=== PATIENT | female | born 1970 | race Caucasian/White ===

== ENCOUNTER 2017-06-23 17:27 | Emergency (ER) | payer BC ==
[2017-06-23] MEDS ORDERED: Ketorolac 60 MG/2 ML SDV IM ONE (17:50)
[2017-06-23] MEDS ORDERED: Enoxaparin 100 MG/1 ML Syringe SUBCUT ONE (19:28)
[2017-06-23] MEDS ORDERED: Warfarin 5 MG Tab PO SCH (19:30)
--- NOTE | 2017-06-23 19:52 | EDM.PDOC ---
ED HPI GENERAL MEDICAL PROBLEM - General Chief Complaint: Lower Extremity Injury/Pain Stated Complaint: LEG PAIN Time Seen by Provider: 06/23/17 17:41 Source of Information: Reports: Patient History Limitations: Reports: No Limitations - History of Present Illness INITIAL COMMENTS - FREE TEXT/NARRATIVE: HISTORY AND PHYSICAL: [] 47-year-old female presenting with right posterior knee pain History of Present Illness: []Pain occurred suddenly today and worsened if she drove here to ER Review of Systems: As per history of present illness and below otherwise all systems reviewed and negative. Past medical history: As per history of present illness and as reviewed below otherwise noncontributory. Surgical history: As per history of present illness and as reviewed below otherwise noncontributory. Social history: No reported history of drug or alcohol abuse. Family history: As per history of present illness and as reviewed below otherwise noncontributory. Physical exam: Alert and oriented female. answering questions appropriately HEENT: Atraumatic, normocehpalic, pupils reactive, negative for conjunctival pallor or scleral icterus, mucous membranes moist, throat clear, neck supple, nontender, trachea midline. Lungs: Clear to auscultation, breath sounds equal bilaterally, chest non tender. Heart: S1S2, regular, negative for clicks, rubs, or JVD. Abdomen: Soft, nondistended, nontender. Negative for masses or hepatossplenmegaly. Negative for costovertebral tenderness. Pelvis: Stable nontender. Genitourinary: Deferred. Rectal: Deferred Extremities: Atraumatic, negative for cords or calf pain. Pain is noted to the popliteal area. No pulses palpable Neurovascular unremarkable. Neuro: Awake, alert, oriented. Cranial nerves II through XII unremarkable. Cerebellum unremarkable. Motor and sensory unremarkable throughout. Exam nonfocal. Chest chest case with Dr. Garcia who is agreeable that she should have Lovenox and the Coumadin. He will see her in 2 days at the clinic on Wednesday06/25/2017. His instructed for the patient to call his nurse Nancy and talk to her about being worked into his schedule. Discussed case with Dr. Rincon who is in agreement that Lovenox (started on Coumadin and have her follow up with her primary care provider Discussed case with patient and her family who verbalized understanding of her instructions and oriented agreement with the plan of action Diagnostics: [Venous Doppler] Therapeutics: [Lovenox IM] Coumadin by mouth Impression: [DVT right popliteal] Plan: [Discharged to home No weightbearing to right leg Pain medication per written prescription hydrocodone/APAP 5/325 one up to 3 times daily as needed for pain number of 6 no refill ] Definitive disposition and diagnosis as appropriate pending reevaluation and review of above. Onset: Today, Sudden Duration: Hour(s):, Getting Worse Location: Reports: Lower Extremity, Right back of the right knee and right leg Pain Score (Numeric/FACES): 8 - Related Data Allergies Allergy/AdvReac Type Severity Reaction Status Date / Time chokecherries Allergy Rash Uncoded 06/23/17 17:38 Home Meds: Home Meds Famotidine 20 mg PO BID 09/07/16 [History] levETIRAcetam [Levetiracetam] 500 mg PO BID 09/07/16 [History] Enoxaparin [Lovenox] 95 mg SUBCUT Q12HR #10 syringe 06/23/17 [Rx] Multivitamin [Multivitamins] 1 cap PO DAILY 06/23/17 [History] Phenytoin Sodium Extended [Dilantin] 3 cap PO BID 06/23/17 [History] levETIRAcetam [Levetiracetam] 1 tab PO BID 06/23/17 [History] Past Medical History Cardiovascular History: Reports: None Neurological History: Reports: Seizure Psychiatric History: Reports: None - Infectious Disease History Infectious Disease History: Reports: Chicken Pox - Past Surgical History HEENT Surgical History: Reports: Tonsillectomy GI Surgical History: Reports: Cholecystectomy Musculoskeletal Surgical History: Reports: Other (See Below) Other Musculoskeletal Surgeries/Procedures:: bone spur on the right heel surgery Social & Family History - Family History Family Medical History: Noncontributory - Tobacco Use Smoking Status *Q: Current Every Day Smoker Years of Tobacco use: 30 Packs/Tins Daily: 0.7 Used Tobacco, but Quit: No Second Hand Smoke Exposure: Yes - Alcohol Use Days Per Week of Alcohol Use: 0 - Recreational Drug Use Recreational Drug Use: No Review of Systems - Review of Systems Review Of Systems: ROS reveals no pertinent complaints other than HPI. ED EXAM, GENERAL - Physical Exam Exam: See Below (see dictation) Course - Vital Signs Last Recorded V/S: Last Vital Signs Temp 36.7 C 06/23/17 20:17 Pulse 87 06/23/17 20:17 Resp 18 06/23/17 20:17 BP 110/71 06/23/17 20:17 Pulse Ox 95 06/23/17 20:17 - Orders/Labs/Meds Orders: Active Orders 24 hr Category Date Time Status Venous Doppler Lwr Ext Rt [US] Stat Exams 06/23/17 17:50 Taken Warfarin [Coumadin] Med 06/23/17 19:30 Active 5 mg PO DAILY Medication Orders Warfarin Sodium (Coumadin) 5 mg PO DAILY CYNTHIA Last Admin: 06/23/17 19:59 Dose: 5 mg Labs: Laboratory Tests 06/23/17 06/23/17 06/23/17 Range/Units 19:25 19:25 19:25 WBC 9.10 (4.0-11.0) K/uL RBC 4.55 (4.30-5.90) M/uL Hgb 14.7 (12.0-16.0) g/dL Hct 42.4 (36.0-46.0) % MCV 93.2 (80.0-98.0) fL MCH 32.3 H (27.0-32.0) pg MCHC 34.7 (31.0-37.0) g/dL RDW Std Deviation 43.4 (28.0-62.0) fl RDW Coeff of Jennifer 13 (11.0-15.0) % Plt Count 204 (150-400) K/uL MPV 8.80 (7.40-12.00) fL Neut % (Auto) 59.6 (48.0-80.0) % Lymph % (Auto) 28.5 (16.0-40.0) % Bryan % (Auto) 9.2 (0.0-15.0) % Eos % (Auto) 2.2 (0.0-7.0) % Baso % (Auto) 0.5 (0.0-1.5) % Neut # (Auto) 5.4 (1.4-5.7) K/uL Lymph # (Auto) 2.6 H (0.6-2.4) K/uL Bryan # (Auto) 0.8 (0.0-0.8) K/uL Eos # (Auto) 0.2 (0.0-0.7) K/uL Baso # (Auto) 0.1 (0.0-0.1) K/uL INR 1.00 (0.86-1.11) Sodium 138 (136-146) mmol/L Potassium 3.8 (3.5-5.1) mmol/L Chloride 103 (98-110) mmol/L Carbon Dioxide 24 (21-31) mmol/L BUN 7 (6.0-23.0) mg/dL Creatinine 0.7 (0.6-1.5) mg/dL Est Cr Clr Drug Dosing 94.01 mL/min Estimated GFR (MDRD) > 60.0 ml/min Glucose 75 (60-110) mg/dL Calcium 8.6 L (8.8-10.8) mg/dL Total Bilirubin 0.4 (0.1-1.5) mg/dL AST 26 (5-40) IU/L ALT 39 (8-54) IU/L Alkaline Phosphatase 127 (40-150) Total Protein 6.8 (6.0-8.0) g/dL Albumin 3.4 L (3.5-5.0) g/dL Globulin 3.4 (2.0-3.5) g/dL Albumin/Globulin Ratio 1.0 L (1.3-2.8) Meds: Medications Generic Name Dose Route Start Last Admin Trade Name Freq PRN Reason Stop Dose Admin Warfarin Sodium 5 mg 06/23/17 19:30 06/23/17 19:59 Coumadin PO 5 mg DAILY CYNTHIA Administration Discontinued Medications Generic Name Dose Route Start Last Admin Trade Name Freq PRN Reason Stop Dose Admin Enoxaparin Sodium 95 mg 06/23/17 19:28 06/23/17 19:58 Lovenox SUBCUT 06/23/17 19:29 95 mg ONETIME ONE Administration Ketorolac Tromethamine 60 mg 06/23/17 17:50 06/23/17 18:01 Toradol IM 06/23/17 17:51 60 mg ONETIME ONE Administration Departure - Departure Time of Disposition: 20:21 Disposition: Home, Self-Care 01 Condition: Good Clinical Impression: DVT (deep venous thrombosis) Qualifiers: DVT location: lower extremity Affected thrombotic vein of extremity: popliteal Chronicity: acute Laterality: right Qualified Code(s): I82.431 - Acute embolism and thrombosis of right popliteal vein - Discharge Information Prescriptions: Enoxaparin [Lovenox] 95 mg SUBCUT Q12HR #10 syringe Instructions: How and Where to Give Subcutaneous Injections Using a Prefilled Syringe, Deep Vein Thrombosis Referrals: PCP,None [Primary Care Provider] - Forms: ED Department Discharge Additional Instructions: The following information is given to patients seen in the emergency department who are being discharged to home. This information is to outline your options for follow-up care. We provide all patients seen in our emergency department with a follow-up referral. The need for follow-up, as well as the timing and circumstances, are variable depending upon the specifics of your emergency department visit. If you don't have a primary care physician on staff, we will provide you with a referral. We always advise you to contact your personal physician following an emergency department visit to inform them of the circumstance of the visit and for follow-up with them and/or the need for any referrals to a consulting specialist. The emergency department will also refer you to a specialist when appropriate. This referral assures that you have the opportunity for followup care with a specialist. All of these measure are taken in an effort to provide you with optimal care, which includes your followup. Under all circumstances we always encourage you to contact your private physician who remains a resource for coordinating your care. When calling for followup care, please make the office aware that this follow-up is from your recent emergency room visit. If for any reason you are refused follow-up, please contact the [facility] emergency department at and asked to speak to the emergency department charge nurse. Dr. Mike Garcia is aware of your diagnosis He has instructed for you to call his nurse Nancy tomorrow and make arrangements to be worked into his clinic on Wednesday06/25/2017 Any worsening of symptoms difficulty breathing please return immediately for reevaluation to the emergency department - My Orders Last 24 Hours: My Active Orders 06/23/17 17:50 Venous Doppler Lwr Ext Rt [US] Stat 06/23/17 19:30 Warfarin [Coumadin] 5 mg PO DAILY - Assessment/Plan Last 24 Hours: My Active Orders 06/23/17 17:50 Venous Doppler Lwr Ext Rt [US] Stat 06/23/17 19:30 Warfarin [Coumadin] 5 mg PO DAILY
[2017-06-23 20:00] LABS: CHLORIDE,CL 103 mmol/L (98-110); SODIUM,NA 138 mmol/L (136-146)
[2017-06-23 20:18] VITALS: BP 110/71
--- NOTE | 2017-06-24 13:33 | US ---
EXAM DATE: 06/23/17 PATIENT'S AGE: 47 Patient: SCOTT ARCHER Facility: [place], [place] Site . Site : [id number] Study: US Extremity Venous [id number] 7:05:44 PM Ordering Physician: Doctor Brownlee Final Report: INDICATION: Pain TECHNIQUE: Ultrasound venous duplex lower right extremity. Compression venous exam was performed using garcia-scale, color Doppler, and spectral Doppler imaging. COMPARISON: None available FINDINGS: There is a thrombus in the right popliteal vein extending to the distal aspect of the superficial femoral vein. The right common femoral vein and visualized portions of the deep femoral and posterior tibial veins demonstrate complete compressibility, color flow, flow variability and augmentation. Doppler flow is documented in the left common femoral vein. IMPRESSION: A deep venous thrombosis in the popliteal vein extending to the distal SFV. Dictated by Waylon Holley MD @ 06/23/2017 7:14:53 PM Dictated by: Waylon Holley MD @ 06/23/2017 19:14:59 ----- ADDENDUM ----- The findings were discussed with Dr. White, by phone, on 06/23/2017 at 7:10 p.m. Dictated by Waylon Holley MD @ Jun 23 2017 7:24PM (Electronic Signature) Report Signed by Proxy. CAL
== END 2017-06-23 20:21 | disposition home or self-care (01) ==
LOC: MW.ED 17:27
DX: I82.431 Acute embolism and thrombosis of right popliteal vein (principal); Z90.49 Acquired absence of other specified parts of digestive tract; Z98.890 Other specified postprocedural states; Z91.018 Allergy to other foods
CPT/HCPCS: 36415; 80053; 85025; 85610; 93971; 96372; 99284; A9270; J1650; J1885

== ENCOUNTER 2017-06-28 16:19 | Emergency (ER) | payer BC ==
[2017-06-28] MEDS ORDERED: LORazepam 0.5 MG Tab PO ONE (16:52)
--- NOTE | 2017-06-28 17:00 | EDM.PDOC ---
ED HPI GENERAL MEDICAL PROBLEM - General Chief Complaint: Lower Extremity Injury/Pain Stated Complaint: PAIN Time Seen by Provider: 06/28/17 16:54 Source of Information: Reports: Patient, Family History Limitations: Reports: No Limitations - History of Present Illness INITIAL COMMENTS - FREE TEXT/NARRATIVE: HISTORY AND PHYSICAL: [47-year-old female complaining of right leg pain with a known DVT] History of Present Illness: [37-year-old female presents to the emergency room today with complaints of right leg pain with a known DVT. She was seen last Wednesday in the emergency room and diagnosed with a right popliteal DVT. At that time she was started on Lovenox and Coumadin through the ER and given follow-up with Dr. Mike Garcia. She proceeded to follow-up with Dr. Garcia the following day and he switched her to Xarelto and given some [place] for pain. Reports that she has been experiencing pain in the right lower extremity but has not been taking her pain medication as prescribed as she is fearful she will not recognize complications with her DVT. She has been on bedrest and only ambulates to get up to use the bathroom, by walking on her tiptoes. Patient denies any shortness of breath. ] Review of Systems: As per history of present illness and below otherwise all systems reviewed and negative. Past medical history: As per history of present illness and as reviewed below otherwise noncontributory. Surgical history: As per history of present illness and as reviewed below otherwise noncontributory. Social history: No reported history of drug or alcohol abuse. Family history: As per history of present illness and as reviewed below otherwise noncontributory. Physical exam: Gen.: On toxic-appearing 47-year-old female. A shunt is anxious, tearful when answering questions. Able to speak in full sentences without shortness of breath. Answers questions appropriately and is alert and oriented. HEENT: Atraumatic, normocehpalic, pupils reactive, negative for conjunctival pallor or scleral icterus, mucous membranes moist, throat clear, neck supple, nontender, trachea midline. Lungs: Clear to auscultation, breath sounds equal bilaterally, chest non tender. Heart: S1S2, regular, negative for clicks, rubs, or JVD. Abdomen: Soft, nondistended, nontender. Negative for masses or hepatossplenmegaly. Negative for costovertebral tenderness. Pelvis: Stable nontender. Genitourinary: Deferred. Rectal: Deferred Extremities: Atraumatic, mild soft tissue swelling noted to right posterior extremity. Strong pedal pulses bilaterally. negative for cords or calf pain. Neurovascular unremarkable. Neuro: Awake, alert, oriented. Cranial nerves II through XII unremarkable. Cerebellum unremarkable. Motor and sensory unremarkable throughout. Exam nonfocal. Diagnostics: [] Therapeutics: [Ativan by mouth] Impression: [DVT, anxiety] Plan: [1. Please continue with your current medications as prescribed by Dr. Mike Garcia. 2. Take your pain medication as prescribed and as discussed. 3. Follow-up with your primary care provider in 2 days. 4. Continue to your activity as directed by her primary care provider, elevate the affected extremity.] Definitive disposition and diagnosis as appropriate pending reevaluation and review of above. Onset Date: 06/23/17 Severity: Moderate Improves with: Reports: Rest Worsens with: Reports: Movement Right Leg Pain Score (Numeric/FACES): 7 - Related Data Allergies Allergy/AdvReac Type Severity Reaction Status Date / Time chokecherries Allergy Rash Uncoded 06/23/17 17:38 Home Meds: Home Meds Famotidine 20 mg PO BID 09/07/16 [History] levETIRAcetam [Levetiracetam] 500 mg PO BID 09/07/16 [History] Multivitamin [Multivitamins] 1 cap PO DAILY 06/23/17 [History] Phenytoin Sodium Extended [Dilantin] 3 cap PO BID 06/23/17 [History] levETIRAcetam [Levetiracetam] 1 tab PO BID 06/23/17 [History] Acetaminophen with Codeine [Acetaminophen-Cod #3] PRN 06/28/17 [History] Rivaroxaban [Xarelto] 15 mg PO 06/28/17 [History] Past Medical History Cardiovascular History: Reports: None Neurological History: Reports: Seizure Psychiatric History: Reports: None - Infectious Disease History Infectious Disease History: Reports: Chicken Pox - Past Surgical History HEENT Surgical History: Reports: Tonsillectomy GI Surgical History: Reports: Cholecystectomy Musculoskeletal Surgical History: Reports: Other (See Below) Other Musculoskeletal Surgeries/Procedures:: bone spur on the right heel surgery Social & Family History - Family History Family Medical History: Noncontributory - Tobacco Use Smoking Status *Q: Current Every Day Smoker Years of Tobacco use: 30 Packs/Tins Daily: 0.7 Used Tobacco, but Quit: No Second Hand Smoke Exposure: Yes - Alcohol Use Days Per Week of Alcohol Use: 0 - Recreational Drug Use Recreational Drug Use: No Review of Systems - Review of Systems Review Of Systems: See Below ED EXAM, GENERAL - Physical Exam Exam: See Below (See dictation) Course - Vital Signs Last Recorded V/S: Last Vital Signs Temp 36.5 C 06/28/17 16:40 Pulse 85 06/28/17 16:40 Resp 20 06/28/17 16:40 BP 113/71 06/28/17 16:40 Pulse Ox 96 06/28/17 16:40 - Orders/Labs/Meds Meds: Medications Discontinued Medications Generic Name Dose Route Start Last Admin Trade Name Freq PRN Reason Stop Dose Admin Lorazepam 0.5 mg 06/28/17 16:52 06/28/17 17:08 Ativan PO 06/28/17 16:53 0.5 mg ONETIME ONE Administration Departure - Departure Time of Disposition: 17:38 Disposition: Home, Self-Care 01 Condition: Good Clinical Impression: Anxiety - Discharge Information Forms: ED Department Discharge Additional Instructions: The following information is given to patients seen in the emergency department who are being discharged to home. This information is to outline your options for follow-up care. We provide all patients seen in our emergency department with a follow-up referral. The need for follow-up, as well as the timing and circumstances, are variable depending upon the specifics of your emergency department visit. If you don't have a primary care physician on staff, we will provide you with a referral. We always advise you to contact your personal physician following an emergency department visit to inform them of the circumstance of the visit and for follow-up with them and/or the need for any referrals to a consulting specialist. The emergency department will also refer you to a specialist when appropriate. This referral assures that you have the opportunity for followup care with a specialist. All of these measure are taken in an effort to provide you with optimal care, which includes your followup. Under all circumstances we always encourage you to contact your private physician who remains a resource for coordinating your care. When calling for followup care, please make the office aware that this follow-up is from your recent emergency room visit. If for any reason you are refused follow-up, please contact the [facility] emergency department at and asked to speak to the emergency department charge nurse. Please follow-up with Dr. Garcia as previously scheduled Take pain medication as Dr. Garcia has ordered Consider you may need to be treated for anxiety
[2017-06-28 18:43] VITALS: BP 107/73
== END 2017-06-28 17:46 | disposition home or self-care (01) ==
LOC: MW.ED 16:19
DX: I82.431 Acute embolism and thrombosis of right popliteal vein (principal); F41.9 Anxiety disorder, unspecified; F17.210 Nicotine dependence, cigarettes, uncomplicated; Z90.49 Acquired absence of other specified parts of digestive tract; Z98.890 Other specified postprocedural states; Z91.018 Allergy to other foods
CPT/HCPCS: 99283; A9270

== ENCOUNTER 2018-01-13 14:01 | Emergency (ER) | payer BC ==
--- NOTE | 2018-01-13 15:39 | US ---
ULTRASOUND EXAMINATION OF the right lower extremity WITH DOPPLER HISTORY: Pain FINDINGS: Examination of the right leg was performed from the groin to the calf region. All visualized segment s including common femoral, proximal greater saphenous, superficial femoral, and calf veins appear pa tent with good compressibility and augmentation. There is incomplete compressibility within the popli teal vein with good blood flow suggesting fibrotic changes from a previous DVT. IMPRESSION: No evidence of an acute DVT.
--- NOTE | 2018-01-13 15:58 | EDM.PDOC ---
ED HPI GENERAL MEDICAL PROBLEM - General Chief Complaint: Lower Extremity Injury/Pain Stated Complaint: RIGHT LEG PAIN Time Seen by Provider: 01/13/18 14:01 Source of Information: Reports: Patient History Limitations: Reports: No Limitations - History of Present Illness INITIAL COMMENTS - FREE TEXT/NARRATIVE: History of present illness: []She complains of right calf pain after falling in the tub. Patient had a blood clot or popliteal artery a few months ago and has been off blood thinners for 6 months. She is concerned that she may have another blood clot after the injury. Patient denies any shortness of breath or chest pain. Review of systems: As per history of present illness and below otherwise all systems reviewed and negative. Past medical history: As per history of present illness and as reviewed below otherwise noncontributory. Surgical history: As per history of present illness and as reviewed below otherwise noncontributory. Social history: No reported history of drug or alcohol abuse. Family history: As per history of present illness and as reviewed below otherwise noncontributory. Physical exam: General: Well developed, well nourished in NAD HEENT: Atraumatic, normocephalic, pupils reactive, negative for conjunctival pallor or scleral icterus, mucous membranes moist, throat clear, neck supple, nontender, trachea midline. Lungs: Clear to auscultation, breath sounds equal bilaterally, chest nontender. Heart: S1S2, regular, negative for clicks, rubs, or JVD. Abdomen: Soft, nondistended, nontender. Negative for masses or hepatosplenomegaly. Negative for costovertebral tenderness. Pelvis: Stable nontender. Genitourinary: Deferred. Rectal: Deferred. Extremities: Atraumatic, negative for cords or calf pain. Neurovascular unremarkable. Neuro: Awake, alert, oriented. Cranial nerves II through XII unremarkable. Cerebellum unremarkable. Motor and sensory unremarkable throughout. Exam nonfocal. Diagnostics: []Ultrasound negative for DVT Therapeutics: [] Impression: []Right leg pain Plan: []Ice to contusions, Tylenol for pain follow-up with primary care Definitive disposition and diagnosis as appropriate pending reevaluation and review of above. right lower leg Pain Score (Numeric/FACES): 4 - Related Data Allergies Allergy/AdvReac Type Severity Reaction Status Date / Time amoxicillin [From Augmentin] Allergy Rash Verified 01/13/18 14:08 clavulanic acid Allergy Rash Verified 01/13/18 14:08 [From Augmentin] chokecherries Allergy Rash Uncoded 01/13/18 14:08 Home Meds: Home Meds Famotidine 20 mg PO BID 09/07/16 [History] levETIRAcetam [Levetiracetam] 500 mg PO BID 09/07/16 [History] Phenytoin Sodium Extended [Dilantin] 3 cap PO BID 06/23/17 [History] levETIRAcetam [Levetiracetam] 1 tab PO BID 06/23/17 [History] Past Medical History HEENT History: Reports: None Cardiovascular History: Reports: None Respiratory History: Reports: None Gastrointestinal History: Reports: None Genitourinary History: Reports: None PHD INTERN History: Reports: None Musculoskeletal History: Reports: None Neurological History: Reports: Seizure Psychiatric History: Reports: None Endocrine/Metabolic History: Reports: None Hematologic History: Reports: Other (See Below) Other Hematologic History: blood clot right knee Immunologic History: Reports: None Oncologic (Cancer) History: Reports: None Dermatologic History: Reports: None - Infectious Disease History Infectious Disease History: Reports: Chicken Pox - Past Surgical History Head Surgeries/Procedures: Reports: None HEENT Surgical History: Reports: Tonsillectomy Cardiovascular Surgical History: Reports: None Respiratory Surgical History: Reports: None GI Surgical History: Reports: Cholecystectomy Female Surgical History: Reports: None Endocrine Surgical History: Reports: None Neurological Surgical History: Reports: None Musculoskeletal Surgical History: Reports: Other (See Below) Other Musculoskeletal Surgeries/Procedures:: bone spur on the right heel surgery Oncologic Surgical History: Reports: None Dermatological Surgical History: Reports: None Social & Family History - Family History Family Medical History: Noncontributory - Tobacco Use Smoking Status *Q: Current Every Day Smoker Years of Tobacco use: 32 Packs/Tins Daily: 0.7 Used Tobacco, but Quit: No Second Hand Smoke Exposure: Yes - Caffeine Use Caffeine Use: Reports: Coffee, Soda - Alcohol Use Days Per Week of Alcohol Use: 0 - Recreational Drug Use Recreational Drug Use: No Review of Systems - Review of Systems Review Of Systems: See Below (See history of present illness) ED EXAM, GENERAL - Physical Exam Exam: See Below (See history of present illness) Course - Vital Signs Last Recorded V/S: Last Vital Signs Temp 97.0 F 01/13/18 14:10 Pulse 105 H 01/13/18 14:10 Resp 18 01/13/18 14:10 BP 128/73 01/13/18 14:10 Pulse Ox 96 01/13/18 14:10 Departure - Departure Time of Disposition: 15:55 Disposition: Home, Self-Care 01 Condition: Good Clinical Impression: Right leg pain - Discharge Information Referrals: Mike Garcia MD [Primary Care Provider] - Additional Instructions: The following information is given to patients seen in the emergency department who are being discharged to home. This information is to outline your options for follow-up care. We provide all patients seen in our emergency department with a follow-up referral. The need for follow-up, as well as the timing and circumstances, are variable depending upon the specifics of your emergency department visit. If you don't have a primary care physician on staff, we will provide you with a referral. We always advise you to contact your personal physician following an emergency department visit to inform them of the circumstance of the visit and for follow-up with them and/or the need for any referrals to a consulting specialist. The emergency department will also refer you to a specialist when appropriate. This referral assures that you have the opportunity for follow-up care with a specialist. All of these measure are taken in an effort to provide you with optimal care, which includes your follow-up. Under all circumstances we always encourage you to contact your private physician who remains a resource for coordinating your care. When calling for follow-up care, please make the office aware that this follow-up is from your recent emergency room visit. If for any reason you are refused follow-up, please contact the [facility] Emergency Department at and asked to speak to the emergency department charge nurse. Ice to contusion, Tylenol for pain follow-up with PMD as needed [facility] [address] [place] [id number]
[2018-01-13 16:11] VITALS: BP 133/87
== END 2018-01-13 16:09 | disposition home or self-care (01) ==
LOC: MW.ED 14:01
DX: M79.604 Pain in right leg (principal); F17.210 Nicotine dependence, cigarettes, uncomplicated; Z88.1 Allergy status to other antibiotic agents; Z79.899 Other long term (current) drug therapy
CPT/HCPCS: 93971-26-RT; 93971-RT; 99283; 99283-25

== ENCOUNTER 2019-05-02 17:11 | Emergency (ER) | payer BC ==
[2019-05-02] MEDS ORDERED: Sodium Chloride 0.9% 1,000 ML IV ONE (17:31)
--- NOTE | 2019-05-02 17:53 | EDM.PDOC ---
ED HPI GENERAL MEDICAL PROBLEM - General Chief Complaint: Gastrointestinal Problem Stated Complaint: PAIN Time Seen by Provider: 05/02/19 17:26 - History of Present Illness INITIAL COMMENTS - FREE TEXT/NARRATIVE: HISTORY AND PHYSICAL: History of present illness: Patient's 48-year-old female presents with concern of right-sided abdominal pain she was seen several days prior and put empirically on antibiotics for urinary tract infection her urinalysis was negative at that time. There's been no fever chills or other complaints Review of systems: As per history of present illness and below otherwise all systems reviewed and negative. Past medical history: As per history of present illness and as reviewed below otherwise noncontributory. Surgical history: As per history of present illness and as reviewed below otherwise noncontributory. Social history: No reported history of drug or alcohol abuse. Family history: As per history of present illness and as reviewed below otherwise noncontributory. Physical exam: HEENT: Atraumatic, normocephalic, pupils reactive, negative for conjunctival pallor or scleral icterus, mucous membranes moist, throat clear, neck supple, nontender, trachea midline. Lungs: Clear to auscultation, breath sounds equal bilaterally, chest nontender. Heart: S1S2, regular, negative for clicks, rubs, or JVD. Abdomen: Soft, nondistended, mild tenderness in the right abdomen this is not well localized no rebound no guarding Negative for masses or hepatosplenomegaly. Negative for costovertebral tenderness. Pelvis: Stable nontender. Genitourinary: Deferred. Rectal: Deferred. Extremities: Atraumatic, negative for cords or calf pain. Neurovascular unremarkable. Neuro: Awake, alert, oriented. Cranial nerves II through XII unremarkable. Cerebellum unremarkable. Motor and sensory unremarkable throughout. Exam nonfocal. Diagnostics: CBC CMP UA CT abdomen and pelvis Therapeutics: Saline 1 L bolus Impression: #1 right-sided abdominal Definitive disposition and diagnosis as appropriate pending reevaluation and review of above. RLQ Pain Score (Numeric/FACES): 5 - Related Data Allergies Allergy/AdvReac Type Severity Reaction Status Date / Time amoxicillin [From Augmentin] Allergy Rash Verified 05/02/19 17:27 clavulanic acid Allergy Rash Verified 05/02/19 17:27 [From Augmentin] chokecherries Allergy Rash Uncoded 05/02/19 17:27 Home Meds: Home Meds levETIRAcetam [Levetiracetam] 500 mg PO BID 09/07/16 [History] Phenytoin Sodium Extended [Dilantin] 300 cap PO BID 06/23/17 [History] levETIRAcetam [Levetiracetam] 750 tab PO BID 06/23/17 [History] Rivaroxaban [Xarelto] 20 mg PO DAILY 05/02/19 [History] Past Medical History HEENT History: Reports: None Cardiovascular History: Reports: None Respiratory History: Reports: None Gastrointestinal History: Reports: None Genitourinary History: Reports: None SHIPYARD HELPER History: Reports: None Musculoskeletal History: Reports: None Neurological History: Reports: Seizure Psychiatric History: Reports: None Endocrine/Metabolic History: Reports: None Hematologic History: Reports: Other (See Below) Other Hematologic History: blood clot right knee Immunologic History: Reports: None Oncologic (Cancer) History: Reports: None Dermatologic History: Reports: None - Infectious Disease History Infectious Disease History: Reports: Chicken Pox - Past Surgical History Head Surgeries/Procedures: Reports: None HEENT Surgical History: Reports: Tonsillectomy Cardiovascular Surgical History: Reports: None Respiratory Surgical History: Reports: None GI Surgical History: Reports: Cholecystectomy Female Surgical History: Reports: None Endocrine Surgical History: Reports: None Neurological Surgical History: Reports: None Musculoskeletal Surgical History: Reports: Other (See Below) Other Musculoskeletal Surgeries/Procedures:: bone spur on the right heel surgery Oncologic Surgical History: Reports: None Dermatological Surgical History: Reports: None Social & Family History - Family History Family Medical History: Noncontributory - Tobacco Use Smoking Status *Q: Current Every Day Smoker Years of Tobacco use: 22 Packs/Tins Daily: 0.8 - Caffeine Use Caffeine Use: Reports: Coffee, Soda, Tea - Recreational Drug Use Recreational Drug Use: No ED ROS GENERAL - Review of Systems Review Of Systems: ROS reveals no pertinent complaints other than HPI. ED EXAM, GENERAL - Physical Exam Exam: See Below (See dictation) Course - Vital Signs Last Recorded V/S: Last Vital Signs Temp 36.2 C 05/02/19 17:23 Pulse 78 05/02/19 18:34 Resp 13 05/02/19 18:34 BP 114/71 05/02/19 18:34 Pulse Ox 96 05/02/19 18:34 - Orders/Labs/Meds Orders: Active Orders 24 hr Category Date Time Status Abdomen Pelvis wo Cont [CT] Stat Exams 05/02/19 17:31 Taken CULTURE URINE [RM] Stat Lab 05/02/19 17:40 Received Labs: Laboratory Tests 05/02/19 05/02/19 05/02/19 Range/Units 17:36 17:36 17:40 WBC 7.04 (4.0-11.0) K/uL RBC 4.72 (4.30-5.90) M/uL Hgb 15.1 (12.0-16.0) g/dL Hct 44.0 (36.0-46.0) % MCV 93.2 (80.0-98.0) fL MCH 32.0 (27.0-32.0) pg MCHC 34.3 (31.0-37.0) g/dL RDW Std Deviation 47.6 (28.0-62.0) fl RDW Coeff of Jennifer 14 (11.0-15.0) % Plt Count 274 (150-400) K/uL MPV 9.20 (7.40-12.00) fL Neut % (Auto) 56.1 (48.0-80.0) % Lymph % (Auto) 33.5 (16.0-40.0) % Bucks % (Auto) 9.2 (0.0-15.0) % Eos % (Auto) 0.9 (0.0-7.0) % Baso % (Auto) 0.3 (0.0-1.5) % Neut # (Auto) 4.0 (1.4-5.7) K/uL Lymph # (Auto) 2.4 (0.6-2.4) K/uL Bucks # (Auto) 0.7 (0.0-0.8) K/uL Eos # (Auto) 0.1 (0.0-0.7) K/uL Baso # (Auto) 0.0 (0.0-0.1) K/uL Nucleated RBC % 0.0 /100WBC Nucleated RBCs # 0 K/uL Sodium 137 (136-145) mmol/L Potassium 3.7 (3.5-5.1) mmol/L Chloride 104 (98-107) mmol/L Carbon Dioxide 21.7 (21.0-32.0) mmol/L BUN 8 (7.0-18.0) mg/dL Creatinine 0.6 (0.6-1.0) mg/dL Est Cr Clr Drug Dosing 108.51 mL/min Estimated GFR (MDRD) > 60.0 ml/min Glucose 105 (74-106) mg/dL Calcium 8.3 L (8.5-10.1) mg/dL Total Bilirubin 0.2 (0.2-1.0) mg/dL AST 31 (15-37) IU/L ALT 31 (14-63) IU/L Alkaline Phosphatase 115 (46-116) U/L Total Protein 7.2 (6.4-8.2) g/dL Albumin 3.2 L (3.4-5.0) g/dL Globulin 4.0 (2.6-4.0) g/dL Albumin/Globulin Ratio 0.8 L (0.9-1.6) Urine Color YELLOW Urine Appearance CLOUDY Urine pH 6.0 (5.0-8.0) Ur Specific Noti 1.025 (1.001-1.035) Urine Protein NEGATIVE (NEGATIVE) mg/dL Urine Glucose (UA) NEGATIVE (NEGATIVE) mg/dL Urine Ketones NEGATIVE (NEGATIVE) mg/dL Urine Occult Blood MODERATE H (NEGATIVE) Urine Nitrite NEGATIVE (NEGATIVE) Urine Bilirubin NEGATIVE (NEGATIVE) Urine Urobilinogen 0.2 (<2.0) EU/dL Ur Leukocyte Esterase LARGE H (NEGATIVE) Urine RBC 1-3 (0-2/HPF) Urine WBC 2-4 (0-5/HPF) Ur Epithelial Cells MANY (NONE-FEW) Urine Bacteria RARE (NEGATIVE) Urine Mucus LIGHT (NONE-MOD) Meds: Medications Discontinued Medications Generic Name Dose Route Start Last Admin Trade Name Freq PRN Reason Stop Dose Admin Sodium Chloride 1,000 mls @ 999 mls/hr 05/02/19 17:31 05/02/19 17:45 Normal Saline IV 05/02/19 18:31 999 mls/hr STAT ONE Administration Departure - Departure Time of Disposition: 18:48 Disposition: Home, Self-Care 01 Condition: Good Clinical Impression: Abdominal pain - Discharge Information Referrals: PCP,None [Primary Care Provider] - Forms: ED Department Discharge Additional Instructions: The following information is given to patients seen in the emergency department who are being discharged to home. This information is to outline your options for follow-up care. We provide all patients seen in our emergency department with a follow-up referral. The need for follow-up, as well as the timing and circumstances, are variable depending upon the specifics of your emergency department visit. If you don't have a primary care physician on staff, we will provide you with a referral. We always advise you to contact your personal physician following an emergency department visit to inform them of the circumstance of the visit and for follow-up with them and/or the need for any referrals to a consulting specialist. The emergency department will also refer you to a specialist when appropriate. This referral assures that you have the opportunity for followup care with a specialist. All of these measure are taken in an effort to provide you with optimal care, which includes your followup. Under all circumstances we always encourage you to contact your private physician who remains a resource for coordinating your care. When calling for followup care, please make the office aware that this follow-up is from your recent emergency room visit. If for any reason you are refused follow-up, please contact the [facility] emergency department at and asked to speak to the emergency department charge nurse. Push fluids clear liquids as discussed all private medical doctor as needed as discussed and return as needed as discussed - My Orders Last 24 Hours: My Active Orders 05/02/19 17:31 Abdomen Pelvis wo Cont [CT] Stat 05/02/19 17:40 CULTURE URINE [RM] Stat - Assessment/Plan Last 24 Hours: My Active Orders 05/02/19 17:31 Abdomen Pelvis wo Cont [CT] Stat 05/02/19 17:40 CULTURE URINE [RM] Stat
[2019-05-02 18:12] LABS: CHLORIDE,CL 104 mmol/L (98-107); SODIUM,NA 137 mmol/L (136-145)
--- NOTE | 2019-05-02 19:04 | CT ---
INDICATION: Right lower quadrant abdomen pain. TECHNIQUE: CT abdomen and pelvis without contrast. COMPARISON: None. FINDINGS: Lower chest: Unremarkable. Liver: Normal in size and attenuation. No masses. Gallbladder and bile ducts: Status post cholecystectomy. Pancreas: Unremarkable. No mass or inflammation. Spleen: Normal in size. No masses. Adrenal glands: Normal in size. No nodules. Kidneys: Normal in size. No masses, stones, or hydronephrosis. GI tract: Unremarkable. Normal in caliber. No sign of mass or inflammation. Normal appendix. Vasculature: Unremarkable. Lymph nodes: No lymphadenopathy. Abdominal wall/Omentum/Peritoneum: Unremarkable. No sign of mass or infiltration. No free air or significant free fluid. Pelvis: A simple 3.2 cm cyst is in the left ovary. Otherwise unremarkable pelvis. Bones: Unremarkable for age. IMPRESSION: 1. Simple 3.2 cm left ovarian cyst without evidence of rupture. 2. No other acute or specific findings to explain right lower quadrant pain. Specifically there are no renal stones nor hydronephrosis. Appendix and GI tract are unremarkable as well. Please note that all CT scans at this facility use dose modulation, iterative reconstruction, and/or weight-based dosing when appropriate to reduce radiation dose to as low as reasonably achievable. Dictated by Owen Conn MD @ May 02 2019 6:56PM Signed by Dr. Owen Conn @ May 02 2019 7:04PM
[2019-05-02 19:14] VITALS: BP 120/69
== END 2019-05-02 19:23 | disposition home or self-care (01) ==
LOC: MW.ED 17:11
DX: R10.11 Right upper quadrant pain (principal); F17.210 Nicotine dependence, cigarettes, uncomplicated; Z79.899 Other long term (current) drug therapy
CPT/HCPCS: 74176; 80053; 81001; 85025; 87086; 96360; 96361; 99284; J7040

== ENCOUNTER 2020-04-16 11:39 | Day surgery (SDC) | payer BC ==
[~2020-04-16 11:39] MED LIST: Lactated Ringers 1,000 ML IV SCH
--- NOTE | 2020-04-16 13:31 | PCM.PREANE ---
Preanesthetic Assessment - Anesthesia/Transfusion/Family Hx Anesthesia History: Prior Anesthesia Without Reaction Family History of Anesthesia Reaction: No Transfusion History: No Prior Transfusion(s) - Review of Systems General: No Symptoms Pulmonary: No Symptoms Cardiovascular: No Symptoms Gastrointestinal: No Symptoms Neurological: No Symptoms Other: Reports: None - Physical Assessment NPO Status Date: 04/15/20 Vital Signs: Last Vital Signs Temp 98.1 F 04/16/20 12:31 Pulse 74 04/16/20 12:31 Resp 16 04/16/20 12:31 BP 109/60 04/16/20 12:31 Pulse Ox 93 L 04/16/20 12:31 Height: 5 ft 5.5 in Weight: 94.347 kg ASA Class: 2 Mental Status: Alert & Oriented x3 Dentition: Reports: Partial ROM/Head Extension: Full Lungs: Clear to Auscultation, Normal Respiratory Effort Cardiovascular: Regular Rate, Regular Rhythm - Lab Values: Laboratory Last Values WBC 8.94 K/uL (4.0-11.0) 04/16/20 12:02 RBC 4.43 M/uL (4.30-5.90) 04/16/20 12:02 Hgb 14.5 g/dL (12.0-16.0) 04/16/20 12:02 Hct 43.8 % (36.0-46.0) 04/16/20 12:02 MCV 98.9 fL (80.0-98.0) H 04/16/20 12:02 MCH 32.7 pg (27.0-32.0) H 04/16/20 12:02 MCHC 33.1 g/dL (31.0-37.0) 04/16/20 12:02 RDW Std Deviation 49.6 fl (28.0-62.0) 04/16/20 12:02 RDW Coeff of Jennifer 14 % (11.0-15.0) 04/16/20 12:02 Plt Count 258 K/uL (150-400) 04/16/20 12:02 MPV 9.30 fL (7.40-12.00) 04/16/20 12:02 Nucleated RBC % 0.0 /100WBC 04/16/20 12:02 Nucleated RBCs # 0 K/uL 04/16/20 12:02 HCG, Qual NEGATIVE (NEG) 04/16/20 12:02 - Allergies Allergies/Adverse Reactions: Allergies Allergy/AdvReac Type Severity Reaction Status Date / Time amoxicillin [From Augmentin] Allergy Rash Verified 04/16/20 12:26 carbamazepine [From Tegretol] Allergy Nausea and Verified 04/16/20 12:26 Vomiting citalopram Allergy Nausea and Verified 04/16/20 12:26 Vomiting clavulanic acid Allergy Rash Verified 04/16/20 12:26 [From Augmentin] sulfamethoxazole Allergy Nausea and Verified 04/16/20 12:26 [From Bactrim] Vomiting trimethoprim [From Bactrim] Allergy Nausea and Verified 04/16/20 12:26 Vomiting chokecherries Allergy Rash Uncoded 04/16/20 12:26 - Blood Blood Available: No - Anesthesia Plan Pre-Op Medication Ordered: None - Acknowledgements Anesthesia Type Planned: General Anesthesia Pt an Appropriate Candidate for the Planned Anesthesia: Yes Alternatives and Risks of Anesthesia Discussed w Pt/Guardian: Yes Pt/Guardian Understands and Agrees with Anesthesia Plan: Yes Additional Comments: PMH: seizure disorder, on anticoagulant for recent clot PLAN: GA/lma PreAnesthesia Questionnaire HEENT History: Reports: Other (See Below) Other HEENT History: wears glasses Cardiovascular History: Reports: Blood Clots/VTE/DVT Other Cardiovascular History: 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 Respiratory History: Reports: None Gastrointestinal History: Reports: GERD Genitourinary History: Reports: None RN ADVICE History: Reports: Musculoskeletal History: Reports: Arthritis, Back Pain, Chronic, Neck Pain, Chronic Neurological History: Reports: Seizure Other Neuro History: has not had a seizure "in a long time" Psychiatric History: Reports: Depression Other Psychiatric History: of in the last year Endocrine/Metabolic History: Reports: Obesity/BMI 30+ Hematologic History: Reports: Other (See Below) Other Hematologic History: blood clot right knee Immunologic History: Reports: None Oncologic (Cancer) History: Reports: None Dermatologic History: Reports: None - Infectious Disease History Infectious Disease History: Reports: Chicken Pox - Past Surgical History Head Surgeries/Procedures: Reports: None HEENT Surgical History: Reports: Tonsillectomy Cardiovascular Surgical History: Reports: None Respiratory Surgical History: Reports: None GI Surgical History: Reports: Cholecystectomy, Colonoscopy Female Surgical History: Reports: None Endocrine Surgical History: Reports: None Neurological Surgical History: Reports: None Musculoskeletal Surgical History: Reports: Other (See Below) Other Musculoskeletal Surgeries/Procedures:: Excision of bone spur right heel Oncologic Surgical History: Reports: None Dermatological Surgical History: Reports: None - SUBSTANCE USE Smoking Status *Q: Current Every Day Smoker Tobacco Use Within Last Twelve Months: Cigarettes Recreational Drug Use History: No - HOME MEDS Home Medications: Home Meds levETIRAcetam [Levetiracetam] 500 mg PO BID 09/07/16 [History] Phenytoin Sodium Extended [Dilantin] 300 cap PO BID 06/23/17 [History] levETIRAcetam [Levetiracetam] 750 tab PO BID 06/23/17 [History] Rivaroxaban [Xarelto] 20 mg PO QPM 05/02/19 [History] Famotidine 20 mg PO BID 04/10/20 [History] Multivitamin 1 tab PO DAILY 04/10/20 [History] buPROPion [buPROPion XL] 150 mg PO DAILY 04/10/20 [History] cephALEXin [Keflex] 500 mg PO TID 04/16/20 [History] - CURRENT (IN HOUSE) MEDS Current Meds: Current Medications Lactated Ringer's (Ringers, Lactated) 1,000 mls @ 125 mls/hr IV ASDIRECTED [facility] Last Admin: 04/16/20 12:26 Dose: 125 mls/hr
[2020-04-16] MEDS ORDERED: Lidocaine 2% 100 MG/5 ML Syringe ONE (14:25)
[2020-04-16] MEDS ORDERED: Propofol 200 MG/20 ML SDV ONE (14:25)
[2020-04-16] MEDS ORDERED: Midazolam 1 MG/ML 2 ML SDV ONE (14:26)
[2020-04-16] MEDS ORDERED: fentaNYL 100 MCG/2 ML SDV ONE (14:26)
[2020-04-16] MEDS ORDERED: Ondansetron 4 MG/2 ML SDV ONE (16:26)
[2020-04-16] MEDS ORDERED: Dexamethasone 4 MG/ML 5 ML MDV ONE (16:26)
[2020-04-16] MEDS ORDERED: Ketorolac 30 MG/ML SDV ONE (16:44)
--- NOTE | 2020-04-16 16:55 | PCM.OPNOTE ---
- General Post-Op/Procedure Note Date of Surgery/Procedure: 04/16/20 Operative Procedure(s): Loop electrosurgical excision procedure Findings: Incompletely healed colposcopy biopsy sites Paragard strings visible prior to and at completion of procedure Pre Op Diagnosis: TOBY 3 Post-Op Diagnosis: TOBY 3 Anesthesia Technique: General LMA Primary Surgeon: Anju Holliday Pathology: Ectocervix Fluid Replacement, Intraop: 1,200 EBL in mLs: 2 Complications: None Condition: Good
--- NOTE | 2020-04-16 17:41 | PCM.POSTAN ---
POST ANESTHESIA ASSESSMENT - MENTAL STATUS Mental Status: Alert, Oriented - VITAL SIGNS Vital Signs: Last Vital Signs Temp 99.5 F 04/16/20 17:20 Pulse 74 04/16/20 17:20 Resp 74 H 04/16/20 17:20 BP 98/62 04/16/20 17:20 Pulse Ox 93 L 04/16/20 17:20 - RESPIRATORY Respiratory Status: Respiratory Rate WNL, Airway Patent, O2 Saturation Stable - CARDIOVASCULAR CV Status: Pulse Rate WNL, Blood Pressure Stable - GASTROINTESTINAL GI Status: No Symptoms - POST OP HYDRATION Hydration Status: Adequate & Stable
--- NOTE | 2020-04-16 17:42 | PCM48HPAN ---
Post Anesthesia Note - EVALUATION WITHIN 48HRS OF ANESTHETIC Vital Signs in Normal Range: Yes Patient Participated in Evaluation: Yes Respiratory Function Stable: Yes Airway Patent: Yes Cardiovascular Function Stable: Yes Hydration Status Stable: Yes Pain Control Satisfactory: Yes Nausea and Vomiting Control Satisfactory: Yes Mental Status Recovered: Yes Vital Signs: Last Vital Signs Temp 99.5 F 04/16/20 17:20 Pulse 74 04/16/20 17:20 Resp 74 H 04/16/20 17:20 BP 98/62 04/16/20 17:20 Pulse Ox 93 L 04/16/20 17:20
[2020-04-16 18:05] VITALS: BP 119/67; PULSE 70
--- NOTE | 2020-04-16 19:45 | OR ---
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 PROCEDURE: Loop electrosurgical excision procedure of the ectocervix. PRIMARY SURGEON: Anju Holliday MD ANESTHESIA: General. FINDINGS: 1. Poorly-healed laparoscopy biopsy site. 2. ParaGard strings visible before and after the procedure. ESTIMATED BLOOD LOSS: 2 mL. IV FLUIDS: 1200 mL. LOCAL ANESTHETIC: 9 mL of 1% lidocaine with epinephrine. DESCRIPTION OF PROCEDURE: The patient was taken to the operating room and placed in a dorsal lithotomy position with legs in Juliocesar type stirrups. General anesthesia was obtained. The patient prepared and draped in the usual manner. An insulated bivalve speculum was inserted into the vagina to expose the cervix. The cervix was infiltrated with 1% lidocaine with epinephrine. The ParaGard strings were tucked into the endocervical canal. A 20 x 10 mm loop electrode was obtained and a biopsy was carried out using a current of 40 carmona cutting and 60 carmona coagulation. The LEEP base was cauterized with a ball electrode. The IUD strings were removed from the endocervical canal. Monsel's solution was placed onto the bed of the LEEP. Hemostasis was observed. All instruments removed. The patient was awakened from anesthesia and taken to recovery room in stable condition. [id number] / MODL /[id number]
== END 2020-04-16 17:52 | disposition home or self-care (01) ==
LOC: MW.SDS 11:39
PROVIDERS: ATTEND Obstetrics & Gynecology
DX: D06.1 Carcinoma in situ of exocervix (principal); K21.9 Gastro-esophageal reflux disease without esophagitis; E66.9 Obesity, unspecified; F32.9 Major depressive disorder, single episode, unspecified; F17.210 Nicotine dependence, cigarettes, uncomplicated; Z88.0 Allergy status to penicillin; Z88.8 Allergy status to other drugs, medicaments and biological substances; Z88.2 Allergy status to sulfonamides; Z88.1 Allergy status to other antibiotic agents; Z68.34 Body mass index [BMI] 34.0-34.9, adult; Z79.01 Long term (current) use of anticoagulants
CPT/HCPCS: 36415; 57522; 84703; 85027; J1100; J1885; J2001; J2250; J2405; J2704; J3010; J7120; 00940

== ENCOUNTER 2020-04-22 16:53 | Emergency (ER) | payer BC ==
--- NOTE | 2020-04-22 17:00 | EDM.PDOC ---
ED HPI GENERAL MEDICAL PROBLEM - General Chief Complaint: Skin Complaint Stated Complaint: RIGHT HAND INFECTION Time Seen by Provider: 04/22/20 16:54 Source of Information: Reports: Patient History Limitations: Reports: No Limitations - History of Present Illness INITIAL COMMENTS - FREE TEXT/NARRATIVE: HISTORY AND PHYSICAL: History of present illness: Patient is a 49-year-old female who presents to the emergency room with complaints of localized infection to the anterior aspect of her right hand. She states approximately a month ago she had bumped her hand on the corner of a desk resulting in a small laceration that has not healed appropriately. She has been on 2 courses of antibiotics and states that the area continues to feel like there is "pus" underneath the skin. She did attempt to get into her primary care provider today who recommended she come to the emergency room for an I&D of the site. She has not had any fevers, chills, red streaking going up her arm, numbness, tingling or weakness of the extremity. Unsure of her last tetanus update. Review of systems: As per history of present illness and below otherwise all systems reviewed and negative. Past medical history: As per history of present illness and as reviewed below otherwise noncontributory. Surgical history: As per history of present illness and as reviewed below otherwise noncontrib utory. Social history: See social history for further information Family history: As per history of present illness and as reviewed below otherwise noncontributory. Physical exam: General: Well-developed and well-nourished 49-year-old female. Alert and oriented. Nontoxic-appearing and in no acute distress. HEENT: Atraumatic, normocephalic, pupils equal and reactive bilaterally, negative for conjunctival pallor or scleral icterus, mucous membranes moist, TMs normal bilaterally, throat clear, neck supple, nontender, trachea midline. No drooling or trismus noted. No meningeal signs. No hot potato voice noted. Lungs: Clear to auscultation, breath sounds equal bilaterally, chest nontender. Heart: S1S2, regular rate and rhythm without overt murmur Abdomen: Soft, nondistended, nontender. Negative for masses or hepatosplenomegaly. Negative for costovertebral tenderness. Pelvis: Stable nontender. Genitourinary: Deferred. Rectal: Deferred. Skin: Intact, warm, dry. No lesions or rashes noted. Extremities: Atraumatic, moves all extremities per self without difficulty or deficits, negative for cords or calf pain. Neurovascular unremarkable. Neuro: Awake, alert, oriented. Cranial nerves II through XII unremarkable. Cerebellum unremarkable. Motor and sensory unremarkable throughout. Exam nonfocal. Notes: Supportive care measures were reviewed and discussed. Voices understanding and is agreeable to plan of care. Denies any further questions or concerns at this time. Diagnostics: None Therapeutics: Prescription: Keflex Impression: Cellulitis Plan: 1. Keep the area clean and dry. Continue to monitor for signs of infection. 2. Tylenol and/or ibuprofen as needed for pain management. 3. Please follow-up with your primary care provider or the general surgeon in the next week. Return to the ED as needed and as discussed. Definitive disposition and diagnosis as appropriate pending reevaluation and review of above. Right Hand Pain Score (Numeric/FACES): 3 - Related Data Allergies Allergy/AdvReac Type Severity Reaction Status Date / Time amoxicillin [From Augmentin] Allergy Rash Verified 04/16/20 12:26 carbamazepine [From Tegretol] Allergy Nausea and Verified 04/16/20 12:26 Vomiting citalopram Allergy Nausea and Verified 04/16/20 12:26 Vomiting clavulanic acid Allergy Rash Verified 04/16/20 12:26 [From Augmentin] sulfamethoxazole Allergy Nausea and Verified 04/16/20 12:26 [From Bactrim] Vomiting trimethoprim [From Bactrim] Allergy Nausea and Verified 04/16/20 12:26 Vomiting champagne Allergy Hives Uncoded 04/22/20 17:09 chokecherries Allergy Rash Uncoded 04/16/20 12:26 Home Meds: Home Meds levETIRAcetam [Levetiracetam] 500 mg PO BID 09/07/16 [History] Phenytoin Sodium Extended [Dilantin] 300 cap PO BID 06/23/17 [History] levETIRAcetam [Levetiracetam] 750 tab PO BID 06/23/17 [History] Rivaroxaban [Xarelto] 20 mg PO QAM 05/02/19 [History] Famotidine 20 mg PO BID 04/10/20 [History] Multivitamin 1 tab PO DAILY 04/10/20 [History] buPROPion [buPROPion XL] 150 mg PO DAILY 04/10/20 [History] cephALEXin [Keflex] 500 mg PO TID 7 Days #21 capsule 04/22/20 [Rx] Past Medical History HEENT History: Reports: Other (See Below) Other HEENT History: wears glasses Cardiovascular History: Reports: Blood Clots/VTE/DVT Other Cardiovascular History: 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 Respiratory History: Reports: None Gastrointestinal History: Reports: GERD Genitourinary History: Reports: None 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: Musculoskeletal History: Reports: Arthritis, Back Pain, Chronic, Neck Pain, Chronic Neurological History: Reports: Seizure Other Neuro History: has not had a seizure "in a long time" Psychiatric History: Reports: Depression Other Psychiatric History: of in the last year Endocrine/Metabolic History: Reports: Obesity/BMI 30+ Hematologic History: Reports: Other (See Below) Other Hematologic History: blood clot right knee Immunologic History: Reports: None Oncologic (Cancer) History: Reports: None Dermatologic History: Reports: None - Infectious Disease History Infectious Disease History: Reports: Chicken Pox - Past Surgical History Head Surgeries/Procedures: Reports: None HEENT Surgical History: Reports: Tonsillectomy Cardiovascular Surgical History: Reports: None Respiratory Surgical History: Reports: None GI Surgical History: Reports: Cholecystectomy, Colonoscopy Female Surgical History: Reports: None Endocrine Surgical History: Reports: None Neurological Surgical History: Reports: None Musculoskeletal Surgical History: Reports: Other (See Below) Other Musculoskeletal Surgeries/Procedures:: Excision of bone spur right heel Oncologic Surgical History: Reports: None Dermatological Surgical History: Reports: None Social & Family History - Family History Family Medical History: Noncontributory - Caffeine Use Caffeine Use: Reports: Coffee, Soda, Tea ED ROS GENERAL - Review of Systems Review Of Systems: Comprehensive ROS is negative, except as noted in HPI. ED EXAM, SKIN/RASH Exam: See Below (See dictation) Course - Vital Signs Last Recorded V/S: Last Vital Signs Temp 97.8 F 04/22/20 17:04 Pulse 90 04/22/20 17:04 Resp 18 04/22/20 17:04 BP 133/58 L 04/22/20 17:04 Pulse Ox 96 04/22/20 17:04 - Orders/Labs/Meds Orders: Active Orders 24 hr Category Date Time Status Vaccines to be Administered [RC] PER UNIT ROUTINE Care 04/22/20 17:21 Active Meds: Medications Discontinued Medications Generic Name Dose Route Start Last Admin Trade Name Angella PRN Reason Stop Dose Admin Bacitracin 1 dose 04/22/20 17:49 Bacitracin Oint 1 Gm TOP 04/22/20 17:50 ONETIME ONE Diphtheria/Tetanus/Acell Pertussis 0.5 ml 04/22/20 17:21 04/22/20 17:36 Adacel IM 04/22/20 17:22 0.5 ml .ONCE ONE Administration Lidocaine/Epinephrine 10 ml 04/22/20 17:21 04/22/20 17:35 Xylocaine 1% With Epinephrine 1:100,000 INJECT 04/22/20 17:22 Not Given ONETIME ONE Lidocaine/Epinephrine Confirm 04/22/20 17:24 04/22/20 17:37 Xylocaine 1% With Epinephrine 1:100,000 Administered 04/22/20 17:25 20 ml Dose Administration 20 ml .ROUTE .STK-MED ONE Departure - Departure Time of Disposition: 17:51 Disposition: Home, Self-Care 01 Clinical Impression: Cellulitis - Discharge Information Prescriptions: cephALEXin [Keflex] 500 mg PO TID 7 Days #21 capsule Instructions: Cellulitis, Adult, [id number] Referrals: Mike Garcia MD [Primary Care Provider] - Forms: ED Department Discharge Additional Instructions: The following information is given to patients seen in the emergency department who are being discharged to home. This information is to outline your options for follow-up care. We provide all patients seen in our emergency department with a follow-up referral. The need for follow-up, as well as the timing and circumstances, are variable depending upon the specifics of your emergency department visit. If you don't have a primary care physician on staff, we will provide you with a referral. We always advise you to contact your personal physician following an emergency department visit to inform them of the circumstance of the visit and for follow-up with them and/or the need for any referrals to a consulting specialist. The emergency department will also refer you to a specialist when appropriate. This referral assures that you have the opportunity for follow-up care with a specialist. All of these measure are taken in an effort to provide you with optimal care, which includes your follow-up. Under all circumstances we always encourage you to contact your private physician who remains a resource for coordinating your care. When calling for follow-up care, please make the office aware that this follow-up is from your recent emergency room visit. If for any reason you are refused follow-up, please contact the [facility] Emergency Department at and asked to speak to the emergency department charge nurse. [facility] [address] [place] [address] [facility] [address] [place] [address] 1. Keep the area clean and dry. Continue to monitor for signs of infection. 2. Tylenol and/or ibuprofen as needed for pain management. 3. Please follow-up with your primary care provider or the general surgeon in the next week. Return to the ED as needed and as discussed. Sepsis Event Note (ED) - Focused Exam Vital Signs: Vital Signs Temp Pulse Resp BP Pulse Ox 04/22/20 17:04 97.8 F 90 18 133/58 L 96 - My Orders Last 24 Hours: My Active Orders 04/22/20 17:21 Vaccines to be Administered [RC] PER UNIT ROUTINE - Assessment/Plan Last 24 Hours: My Active Orders 04/22/20 17:21 Vaccines to be Administered [RC] PER UNIT ROUTINE
[2020-04-22 17:08] VITALS: BP 133/58; PULSE 90
[2020-04-22] MEDS ORDERED: Diphtheria,Pertussis(Acell),Tetanus Vaccine 0.5 ML Syringe IM ONE (17:21)
[2020-04-22] MEDS ORDERED: Lidocaine 1% with EPINEPHrine 1:100,000 10 ML MDV INJECT ONE (17:21)
[2020-04-22] MEDS ORDERED: Lidocaine 1% with EPINEPHrine 1:100,000 20 ML MDV ONE (17:24)
[2020-04-22] MEDS ORDERED: Bacitracin Oint 1 GM U/D Packet TOP ONE (17:49)
== END 2020-04-22 18:04 | disposition home or self-care (01) ==
LOC: MW.ED 16:53
DX: L03.113 Cellulitis of right upper limb (principal); K21.9 Gastro-esophageal reflux disease without esophagitis; F32.9 Major depressive disorder, single episode, unspecified; Z86.718 Personal history of other venous thrombosis and embolism; M19.90 Unspecified osteoarthritis, unspecified site; E66.9 Obesity, unspecified; Z68.32 Body mass index [BMI] 32.0-32.9, adult; Z23 Encounter for immunization; Z88.1 Allergy status to other antibiotic agents; Z88.8 Allergy status to other drugs, medicaments and biological substances; Z88.2 Allergy status to sulfonamides; Z79.899 Other long term (current) drug therapy; Z79.01 Long term (current) use of anticoagulants
CPT/HCPCS: 90471; 90715; 99282; 99283

== ENCOUNTER 2020-08-15 22:22 | Emergency (ER) | payer BC ==
[2020-08-15] MEDS ORDERED: Sodium Chloride 0.9% 10 ML Syringe FLUSH PRN (22:26)
[2020-08-15] MEDS ORDERED: Sodium Chloride 0.9% 2.5 ML Syringe FLUSH PRN (22:26)
[2020-08-15] MEDS ORDERED: Albuterol/Ipratropium 3.0-0.5 MG/3 ML Neb Soln NEB ONE (22:27)
[2020-08-15] MEDS ORDERED: Benzocaine 20% Topical Spray UD MUCMEM ONE (22:28)
--- NOTE | 2020-08-15 22:36 | EDM.PDOC ---
ED HPI GENERAL MEDICAL PROBLEM - General Chief Complaint: Respiratory Problem Stated Complaint: BREATHING PROBLEM Time Seen by Provider: 08/15/20 22:25 - History of Present Illness INITIAL COMMENTS - FREE TEXT/NARRATIVE: History of present illness: [] Patient came in moderate respiratory distress making sighing sounds but not true stridor. She was hyperventilating. She said she had exposures of the Lysol and chlorine. The patient said her throat hurt as well. It hurt when she breathes. The patient was cleaning a bathtub mixed chlorine and Lysol. Almost immediately when she was exposed to the fumes she felt like she could not breathe. It is only gotten worse since. Nothing makes it better. Review of systems: As per history of present illness and below otherwise all systems reviewed and negative. Past medical history: As per history of present illness and as reviewed below otherwise noncontributory. Street of lung or heart disease. Surgical history: As per history of present illness and as reviewed below otherwise noncontributory. Social history: No reported history of drug or alcohol abuse. Family history: As per history of present illness and as reviewed below otherwise noncontributory. Physical exam: Constitutional - well developed, well-nourished and in no acute distress HEENT -erythema of the soft tissues of the pharynx. Otherwise normocephalic, no evidence of trauma - external nose and mouth normal - no mass in neck and no JVD - mucosae moist EYES - full EOM, PERRL, no icterus - no evidence of inflammation, injection, or drainage Respiratory - respiratory distress, equal bilateral expansion, lungs clear to auscultation and no abnormal lung sounds except that she is sighing when she breathes. Cardiovascular - Regular Rhythm with S1 and S2 appreciated and no murmur, gallop or rub. GI - abdomen soft without distension or organomegaly - normal bowel sounds - no guard or rebound Musculoskeletal no gross deformity of long bones or joints - no tenderness, swelling or edema Neurologic - Alert and oriented times four - CN II-XII grossly intact - motor sensory and coordination symmetrically normal Psychiatric - appropriate mood and affect with normal thought content Hematologic - No petechiae or purpura - mucosa appropriate color and sclera not pale - normal nail bed color and refill Integument - no rash or evidence of trauma - normal turgor Diagnostics: So with poison control who said he used bronchodilators as needed and the patient should improve within an hour. General oxygen saturation is 87%-low. [] Therapeutics: [] Impression: [] Plan: [] Definitive disposition and diagnosis as appropriate pending reevaluation and review of above. - Related Data Allergies Allergy/AdvReac Type Severity Reaction Status Date / Time amoxicillin [From Augmentin] Allergy Rash Verified 08/15/20 22:35 carbamazepine [From Tegretol] Allergy Nausea and Verified 08/15/20 22:35 Vomiting citalopram Allergy Nausea and Verified 08/15/20 22:35 Vomiting clavulanic acid Allergy Rash Verified 08/15/20 22:35 [From Augmentin] sulfamethoxazole Allergy Nausea and Verified 08/15/20 22:35 [From Bactrim] Vomiting trimethoprim [From Bactrim] Allergy Nausea and Verified 08/15/20 22:35 Vomiting champagne Allergy Hives Uncoded 08/15/20 22:35 chokecherries Allergy Rash Uncoded 08/15/20 22:35 Home Meds: Home Meds levETIRAcetam [Levetiracetam] 500 mg PO BID 09/07/16 [History] Phenytoin Sodium Extended [Dilantin] 300 cap PO BID 06/23/17 [History] levETIRAcetam [Levetiracetam] 750 tab PO BID 06/23/17 [History] Rivaroxaban [Xarelto] 20 mg PO QAM 05/02/19 [History] Famotidine 20 mg PO BID 04/10/20 [History] Past Medical History HEENT History: Reports: Other (See Below) Other HEENT History: wears glasses Cardiovascular History: Reports: Blood Clots/VTE/DVT Other Cardiovascular History: 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 Respiratory History: Reports: None Gastrointestinal History: Reports: GERD Genitourinary History: Reports: None 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 biopsy of cervix- normal Musculoskeletal History: Reports: Arthritis, Back Pain, Chronic, Neck Pain, Chronic Neurological History: Reports: Seizure Other Neuro History: has not had a seizure "in a long time" Psychiatric History: Reports: Depression Other Psychiatric History: of in the last year Endocrine/Metabolic History: Reports: Obesity/BMI 30+ Hematologic History: Reports: Other (See Below) Other Hematologic History: blood clot right knee Immunologic History: Reports: None Oncologic (Cancer) History: Reports: None Dermatologic History: Reports: None - Infectious Disease History Infectious Disease History: Reports: Chicken Pox - Past Surgical History Head Surgeries/Procedures: Reports: None HEENT Surgical History: Reports: Tonsillectomy Cardiovascular Surgical History: Reports: None Respiratory Surgical History: Reports: None GI Surgical History: Reports: Cholecystectomy, Colonoscopy Female Surgical History: Reports: None Endocrine Surgical History: Reports: None Neurological Surgical History: Reports: None Musculoskeletal Surgical History: Reports: Other (See Below) Other Musculoskeletal Surgeries/Procedures:: Excision of bone spur right heel Oncologic Surgical History: Reports: None Dermatological Surgical History: Reports: None Social & Family History - Family History Family Medical History: Noncontributory - Caffeine Use Caffeine Use: Reports: Coffee, Soda, Tea Other Caffeine Use: 3/day ED ROS GENERAL - Review of Systems Review Of Systems: Comprehensive ROS is negative, except as noted in HPI. ED EXAM, GENERAL - Physical Exam Exam: See Below Free Text/Narrative:: My physical exam as in the HPI Course - Vital Signs Text/Narrative:: 2351-the patient had done well as predicted by poison control. She is got a 95% sat on room air now. Will be discharged in satisfactory condition. She will be discouraged for mixing Lysol with chlorine in the future Last Recorded V/S: Last Vital Signs Temp 97.6 F 08/15/20 22:31 Pulse 82 08/15/20 22:31 Resp 16 08/15/20 22:31 BP 119/72 08/15/20 22:31 Pulse Ox 87 L 08/15/20 22:31 - Orders/Labs/Meds Orders: Active Orders 24 hr Category Date Time Status EKG Documentation Completion [RC] AM Care 08/15/20 22:26 Active RT Aerosol Therapy [RC] ASDIRECTED Care 08/15/20 22:28 Active CBC WITH AUTO DIFF [HEME] Stat Lab 08/15/20 22:26 Ordered COMPREHENSIVE METABOLIC PN,CMP [CHEM] Stat Lab 08/15/20 22:26 Ordered Sodium Chloride 0.9% [Saline Flush] Med 08/15/20 22:26 Active 10 ml FLUSH ASDIRECTED PRN Sodium Chloride 0.9% [Saline Flush] Med 08/15/20 22:26 Active 2.5 ml FLUSH ASDIRECTED PRN Saline Lock Insert [OM.PC] Stat Oth 08/15/20 22:26 Ordered Medication Orders Sodium Chloride (Saline Flush) 10 ml FLUSH ASDIRECTED PRN PRN Reason: Keep Vein Open Sodium Chloride (Saline Flush) 2.5 ml FLUSH ASDIRECTED PRN PRN Reason: Keep Vein Open Meds: Medications Generic Name Dose Route Start Last Admin Trade Name Freq PRN Reason Stop Dose Admin Sodium Chloride 10 ml 08/15/20 22:26 Saline Flush FLUSH ASDIRECTED PRN Keep Vein Open Sodium Chloride 2.5 ml 08/15/20 22:26 Saline Flush FLUSH ASDIRECTED PRN Keep Vein Open Discontinued Medications Generic Name Dose Route Start Last Admin Trade Name Freq PRN Reason Stop Dose Admin Albuterol/Ipratropium 3 ml 08/15/20 22:27 Duoneb 3.0-0.5 Mg/3 Ml NEB 08/15/20 22:28 ONETIME ONE Benzocaine 1 each 08/15/20 22:28 Hurricaine One 20% MUCMEM 08/15/20 22:29 ONETIME ONE Departure - Departure Time of Disposition: 23:52 Disposition: Home, Self-Care 01 Condition: Good Clinical Impression: Chlorine gas exposure - Discharge Information Referrals: Mike Garcia MD [Primary Care Provider] - Forms: ED Department Discharge Additional Instructions: Combination of products you have mixed causes chlorine gas exposure. Your symptoms usually resolve as quickly as they come on but in your case your oxygen had diminished and we had to watch you for period of time and use bronchodilators. [facility] - [facility] [address] [place] [address] [id number] [address] [id number] The following information is given to patients seen in the emergency department who are being discharged to home. This information is to outline your options for follow-up care. We provide all patients seen in our emergency department with a follow-up referral. The need for follow-up, as well as the timing and circumstances, are variable depending upon the specifics of your emergency department visit. If you don't have a primary care physician on staff, we will provide you with a referral. We always advise you to contact your personal physician following an emergency department visit to inform them of the circumstance of the visit and for follow-up with them and/or the need for any referrals to a consulting specialist. The emergency department will also refer you to a specialist when appropriate. This referral assures that you have the opportunity for follow-up care with a specialist. All of these measure are taken in an effort to provide you with optimal care, which includes your follow-up. Under all circumstances we always encourage you to contact your private physician who remains a resource for coordinating your care. When calling for follow-up care, please make the office aware that this follow-up is from your recent emergency room visit. If for any reason you are refused follow-up, please contact the [facility] Emergency Department at and asked to speak to the emergency department charge nurse. Sepsis Event Note (ED) - Focused Exam Vital Signs: Vital Signs Temp Pulse Resp BP Pulse Ox 08/15/20 22:31 97.6 F 82 16 119/72 87 L - My Orders Last 24 Hours: My Active Orders 08/15/20 22:26 EKG Documentation Completion [RC] AM CBC WITH AUTO DIFF [HEME] Stat COMPREHENSIVE METABOLIC PN,CMP [CHEM] Stat Sodium Chloride 0.9% [Saline Flush] 10 ml FLUSH ASDIRECTED PRN Sodium Chloride 0.9% [Saline Flush] 2.5 ml FLUSH ASDIRECTED PRN Saline Lock Insert [OM.PC] Stat 08/15/20 22:28 RT Aerosol Therapy [RC] ASDIRECTED - Assessment/Plan Last 24 Hours: My Active Orders 08/15/20 22:26 EKG Documentation Completion [RC] AM CBC WITH AUTO DIFF [HEME] Stat COMPREHENSIVE METABOLIC PN,CMP [CHEM] Stat Sodium Chloride 0.9% [Saline Flush] 10 ml FLUSH ASDIRECTED PRN Sodium Chloride 0.9% [Saline Flush] 2.5 ml FLUSH ASDIRECTED PRN Saline Lock Insert [OM.PC] Stat 08/15/20 22:28 RT Aerosol Therapy [RC] ASDIRECTED
--- NOTE | 2020-08-15 22:51 | CR ---
INDICATION: Dyspnea. CHEST, ONE VIEW An AP radiograph of the chest was performed. Comparison: No previous studies are currently available for comparison. The lungs appear clear and no pleural effusions are identified. The cardiomediastinal silhouette and pulmonary vasculature appear normal, as do the visualized bones. IMPRESSION: No acute intrathoracic abnormality identified. CULLEN ROBLES MD [facility] Dictated by: Bobby Robles MD @ 08/15/2020 22:48:41 (Electronically Signed)
[2020-08-16] MEDS ORDERED: Albuterol/Ipratropium 3.0-0.5 MG/3 ML Neb Soln ONE (00:03)
[2020-08-16] MEDS ORDERED: Albuterol/Ipratropium 3.0-0.5 MG/3 ML Neb Soln NEB ONE (00:03)
[2020-08-16 04:04] VITALS: BP 112/74; PULSE 93
== END 2020-08-16 00:55 | disposition home or self-care (01) ==
LOC: MW.ED 22:22
DX: Z77.098 Contact with and (suspected) exposure to other hazardous, chiefly nonmedicinal, chemicals (principal); K21.9 Gastro-esophageal reflux disease without esophagitis; R56.9 Unspecified convulsions; E66.9 Obesity, unspecified; Z68.30 Body mass index [BMI] 30.0-30.9, adult; Z88.1 Allergy status to other antibiotic agents; Z88.8 Allergy status to other drugs, medicaments and biological substances; Z88.2 Allergy status to sulfonamides; Z91.018 Allergy to other foods; Z79.899 Other long term (current) drug therapy; Z79.01 Long term (current) use of anticoagulants; Z86.718 Personal history of other venous thrombosis and embolism
CPT/HCPCS: 71045; 99284; A9270; 93010; 99283; J7620-GY

== ENCOUNTER 2020-10-29 09:42 | Emergency (ER) | payer BC ==
[2020-10-29] MEDS ORDERED: Sodium Chloride 0.9% 2.5 ML Syringe FLUSH PRN (09:43)
[2020-10-29] MEDS ORDERED: Sodium Chloride 0.9% 10 ML Syringe FLUSH PRN (09:43)
[2020-10-29] MEDS ORDERED: Ketorolac 30 MG/ML SDV IVPUSH ONE (10:31)
--- NOTE | 2020-10-29 10:32 | EDM.PDOC ---
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 The patient states that this is approximately the normal time for her menstrual cycle but today she has been passing clots she is soaked 2 pads in the last 2 hours and this is unusual for her. She has an IUD in place to try and help manage this because she cannot take any oral control. No chest pain or shortness of breath lightheadedness or dizziness no cramping or other abdominal pain at this time. No exacerbating or alleviating factors radiation or other associated symptoms. At the instruction of Dr. Garcia her primary doctor she held her Xarelto this morning. - Related Data Allergies Allergy/AdvReac Type Severity Reaction Status Date / Time amoxicillin [From Augmentin] Allergy Rash Verified 10/29/20 09:56 carbamazepine [From Tegretol] Allergy Nausea and Verified 10/29/20 09:56 Vomiting citalopram Allergy Nausea and Verified 10/29/20 09:56 Vomiting clavulanic acid Allergy Rash Verified 10/29/20 09:56 [From Augmentin] sulfamethoxazole Allergy Nausea and Verified 10/29/20 09:56 [From Bactrim] Vomiting trimethoprim [From Bactrim] Allergy Nausea and Verified 10/29/20 09:56 Vomiting champagne Allergy Hives Uncoded 10/29/20 09:56 chokecherries Allergy Rash Uncoded 10/29/20 09:56 Home Meds: Home Meds levETIRAcetam [Levetiracetam] 500 mg PO BID 09/07/16 [History] Phenytoin Sodium Extended [Dilantin] 300 cap PO BID 06/23/17 [History] levETIRAcetam [Levetiracetam] 750 tab PO BID 06/23/17 [History] Rivaroxaban [Xarelto] 20 mg PO QAM 05/02/19 [History] buPROPion [buPROPion XL] 150 mg PO DAILY 10/29/20 [History] Past Medical History HEENT History: Reports: Other (See Below) Other HEENT History: wears glasses Cardiovascular History: Reports: Blood Clots/VTE/DVT Other Cardiovascular History: 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 Respiratory History: Reports: None Gastrointestinal History: Reports: GERD Genitourinary History: Reports: None 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: 04/16/20 biopsy of cervix- normal Musculoskeletal History: Reports: Arthritis, Back Pain, Chronic, Neck Pain, Chronic Neurological History: Reports: Seizure Other Neuro History: has not had a seizure "in a long time" Psychiatric History: Reports: Depression Other Psychiatric History: of in the last year Endocrine/Metabolic History: Reports: Obesity/BMI 30+ Hematologic History: Reports: Other (See Below) Other Hematologic History: blood clot right knee Immunologic History: Reports: None Oncologic (Cancer) History: Reports: None Dermatologic History: Reports: None - Infectious Disease History Infectious Disease History: Reports: Chicken Pox - Past Surgical History Head Surgeries/Procedures: Reports: None HEENT Surgical History: Reports: Tonsillectomy Cardiovascular Surgical History: Reports: None Respiratory Surgical History: Reports: None GI Surgical History: Reports: Cholecystectomy, Colonoscopy Female Surgical History: Reports: None Endocrine Surgical History: Reports: None Neurological Surgical History: Reports: None Musculoskeletal Surgical History: Reports: Other (See Below) Other Musculoskeletal Surgeries/Procedures:: Excision of bone spur right heel Oncologic Surgical History: Reports: None Dermatological Surgical History: Reports: None Social & Family History - Family History Family Medical History: No Pertinent Family History - Tobacco Use Tobacco Use Status *Q: Never Tobacco User - Caffeine Use Caffeine Use: Reports: Coffee, Soda, Tea Other Caffeine Use: 3/day - Recreational Drug Use Recreational Drug Use: No ED ROS GENERAL - Review of Systems Review Of Systems: See Below Free Text/Narrative/Comment: General: No fever. Skin: No rash. Eyes: No vision problems. ENT: No sore throat. Neck: No neck stiffness. Respiratory: No shortness of breath. Cardiac: No chest pain. Gastrointestinal: No nausea, vomiting or abdominal pain. Urinary: Per HPI Musculoskeletal: No myalgias/arthralgias. Neurologic: No headache. ED EXAM, GENERAL - Physical Exam Exam: See Below Free Text/Narrative:: General Appearance: No acute distress, appears comfortable Skin: No rash HEENT: Normocephalic/atraumatic, sclera anicteric, mucous membranes moist Neck: Normal range of motion Chest and Lungs: Bilateral breath sounds, clear to auscultation Cardiovascular: Regular rate and rhythm, no murmur Abdomen: Soft, non-tender Back: Normal Musculoskeletal: No edema or tenderness Neurologic: Awake, alert, no obvious deficits, moving all extremities Psychiatric: Appropriate, cooperative Course - Vital Signs Last Recorded V/S: Last Vital Signs Temp 97.9 F 10/29/20 09:57 Pulse 85 10/29/20 10:15 Resp 17 10/29/20 09:57 BP 105/57 L 10/29/20 10:15 Pulse Ox 95 10/29/20 10:15 - Orders/Labs/Meds Orders: Active Orders 24 hr Category Date Time Status Sodium Chloride 0.9% [Saline Flush] Med 10/29/20 09:43 Active 10 ml FLUSH ASDIRECTED PRN Sodium Chloride 0.9% [Saline Flush] Med 10/29/20 09:43 Active 2.5 ml FLUSH ASDIRECTED PRN Saline Lock Insert [OM.PC] Stat Oth 10/29/20 09:43 Ordered Medication Orders Sodium Chloride (Saline Flush) 10 ml FLUSH ASDIRECTED PRN PRN Reason: Keep Vein Open Last Admin: 10/29/20 10:10 Dose: 10 ml Documented by: JULY Sodium Chloride (Saline Flush) 2.5 ml FLUSH ASDIRECTED PRN PRN Reason: Keep Vein Open Last Admin: 10/29/20 10:10 Dose: 2.5 ml Documented by: JULY Labs: Laboratory Tests 10/29/20 10/29/20 10/29/20 Range/Units 09:55 10:11 10:11 WBC 6.68 (4.0-11.0) K/uL RBC 4.36 (4.30-5.90) M/uL Hgb 14.0 (12.0-16.0) g/dL Hct 41.2 (36.0-46.0) % MCV 94.5 (80.0-98.0) fL MCH 32.1 H (27.0-32.0) pg MCHC 34.0 (31.0-37.0) g/dL RDW Std Deviation 50.1 (28.0-62.0) fl RDW Coeff of Jennifer 15 (11.0-15.0) % Plt Count 306 (150-400) K/uL MPV 9.30 (7.40-12.00) fL Neut % (Auto) 56.5 (48.0-80.0) % Lymph % (Auto) 30.2 (16.0-40.0) % [place] % (Auto) 11.8 (0.0-15.0) % Eos % (Auto) 1.2 (0.0-7.0) % Baso % (Auto) 0.3 (0.0-1.5) % Neut # (Auto) 3.8 (1.4-5.7) K/uL Lymph # (Auto) 2.0 (0.6-2.4) K/uL [place] # (Auto) 0.8 (0.0-0.8) K/uL Eos # (Auto) 0.1 (0.0-0.7) K/uL Baso # (Auto) 0.0 (0.0-0.1) K/uL Nucleated RBC % 0.0 /100WBC Nucleated RBCs # 0 K/uL Sodium 141 (136-145) mmol/L Potassium 3.5 (3.5-5.1) mmol/L Chloride 103 (98-107) mmol/L Carbon Dioxide 28.1 (21.0-32.0) mmol/L BUN 8 (7.0-18.0) mg/dL Creatinine 0.7 (0.6-1.0) mg/dL Est Cr Clr Drug Dosing 91.01 mL/min Estimated GFR (MDRD) > 60.0 ml/min Glucose 88 (74-106) mg/dL Calcium 8.5 (8.5-10.1) mg/dL Total Bilirubin 0.3 (0.2-1.0) mg/dL AST 25 (15-37) IU/L ALT 35 (14-63) IU/L Alkaline Phosphatase 96 (46-116) U/L Total Protein 7.4 (6.4-8.2) g/dL Albumin 3.6 (3.4-5.0) g/dL Globulin 3.8 (2.6-4.0) g/dL Albumin/Globulin Ratio 0.9 (0.9-1.6) Urine HCG, Qual NEGATIVE (NEGATIVE) Meds: Medications Generic Name Dose Route Start Last Admin Trade Name Freq PRN Reason Stop Dose Admin Sodium Chloride 10 ml 10/29/20 09:43 10/29/20 10:10 Saline Flush FLUSH 10 ml ASDIRECTED PRN Administration Keep Vein Open Sodium Chloride 2.5 ml 10/29/20 09:43 10/29/20 10:10 Saline Flush FLUSH 2.5 ml ASDIRECTED PRN Administration Keep Vein Open Discontinued Medications Generic Name Dose Route Start Last Admin Trade Name Freq PRN Reason Stop Dose Admin Ketorolac Tromethamine 15 mg 10/29/20 10:31 10/29/20 10:43 Toradol IVPUSH 10/29/20 10:32 15 mg ONETIME ONE Administration Departure - Departure Time of Disposition: 10:59 Disposition: Home, Self-Care 01 Condition: Good Clinical Impression: Menorrhagia - Discharge Information *PRESCRIPTION DRUG MONITORING PROGRAM REVIEWED*: Not Applicable *COPY OF PRESCRIPTION DRUG MONITORING REPORT IN PATIENT JEWEL: Not Applicable Instructions: Menorrhagia Referrals: Mike Garcia MD [Primary Care Provider] - Forms: ED Department Discharge Additional Instructions: Please do not take your Xarelto tomorrow. If you are soaking more than 2 pads in 1 hour for more than 2 hours or if you develop chest pain shortness of breath lightheadedness or dizziness please call your doctor or return to the ER right away. Please call Dr. Garcia's office the day after tomorrow to talk about restarting your Xarelto at that time. The following information is given to patients seen in the emergency department who are being discharged to home. This information is to outline your options for follow-up care. We provide all patients seen in our emergency department with a follow-up referral. The need for follow-up, as well as the timing and circumstances, are variable depending upon the specifics of your emergency department visit. If you don't have a primary care physician on staff, we will provide you with a referral. We always advise you to contact your personal physician following an emergency department visit to inform them of the circumstance of the visit and for follow-up with them and/or the need for any referrals to a consulting specialist. The emergency department will also refer you to a specialist when appropriate. This referral assures that you have the opportunity for follow-up care with a specialist. All of these measure are taken in an effort to provide you with optimal care, which includes your follow-up. Under all circumstances we always encourage you to contact your private physician who remains a resource for coordinating your care. When calling for follow-up care, please make the office aware that this follow-up is from your recent emergency room visit. If for any reason you are refused follow-up, please contact the [facility] Emergency Department at and asked to speak to the emergency department charge nurse. Sepsis Event Note (ED) - Evaluation Sepsis Screening Result: No Definite Risk - Focused Exam Vital Signs: Vital Signs Temp Pulse Resp BP Pulse Ox 10/29/20 10:15 85 105/57 L 95 10/29/20 09:57 97.9 F 85 17 106/68 98 - My Orders Last 24 Hours: My Active Orders 10/29/20 09:43 Sodium Chloride 0.9% [Saline Flush] 10 ml FLUSH ASDIRECTED PRN Sodium Chloride 0.9% [Saline Flush] 2.5 ml FLUSH ASDIRECTED PRN Saline Lock Insert [OM.PC] Stat - Assessment/Plan Last 24 Hours: My Active Orders 10/29/20 09:43 Sodium Chloride 0.9% [Saline Flush] 10 ml FLUSH ASDIRECTED PRN Sodium Chloride 0.9% [Saline Flush] 2.5 ml FLUSH ASDIRECTED PRN Saline Lock Insert [OM.PC] Stat Assessment:: 50-year-old female presenting with heavy menstrual bleeding urine test is negative hemoglobin is good. Pelvic exam is pending. Patient has held her Xarelto. Patient clearly cannot tolerate a burst of OCPs given her clotting history her smoking history and prior physician recommendations. Will provide a dose of Toradol and patient is held her Xarelto recommend continuing to hold the Xarelto for the next few days. Final disposition pending pelvic. 1100: Pelvic exam shows normal external female genitalia there is no significant blood product in the vaginal vault the cervix is closed there is a blood clot that is partially out of the os there is no active hemorrhage there is no repooling there is no CMT Patient's labs are reassuring her exam is reassuring we discussed holding the Xarelto for 48 to 72 hours she will not take it tomorrow she will watch for bleeding she will follow-up with her primary care doctor. Return precautions discussed and understood.
[2020-10-29 10:50] LABS: BLOOD UREA NITROGEN,BUN 8 mg/dL (7.0-18.0); CARBON DIOXIDE,CO2 28.1 mmol/L (21.0-32.0); CHLORIDE,CL 103 mmol/L (98-107); GLUCOSE RANDOM 88 mg/dL (74-106); POTASSIUM,K 3.5 mmol/L (3.5-5.1); SODIUM,NA 141 mmol/L (136-145)
[2020-10-29 11:09] VITALS: BP 101/60; PULSE 72
== END 2020-10-29 11:09 | disposition home or self-care (01) ==
LOC: MW.ED 09:42
DX: N92.0 Excessive and frequent menstruation with regular cycle (principal); R56.9 Unspecified convulsions; F32.9 Major depressive disorder, single episode, unspecified; E66.9 Obesity, unspecified; Z88.1 Allergy status to other antibiotic agents; Z88.8 Allergy status to other drugs, medicaments and biological substances; Z91.018 Allergy to other foods; Z79.01 Long term (current) use of anticoagulants; Z79.899 Other long term (current) drug therapy; Z86.718 Personal history of other venous thrombosis and embolism
CPT/HCPCS: 36415; 80053; 81025; 85025; 96374; 99284; J1885

== ENCOUNTER 2020-11-21 07:51 | Day surgery (SDC) | payer BC ==
[2020-11-18 12:43] LABS: BLOOD UREA NITROGEN,BUN 6 mg/dL (7.0-18.0); CARBON DIOXIDE,CO2 27.9 mmol/L (21.0-32.0); CHLORIDE,CL 105 mmol/L (98-107); GLUCOSE RANDOM 84 mg/dL (74-106); POTASSIUM,K 4.2 mmol/L (3.5-5.1); SODIUM,NA 141 mmol/L (136-145)
[~2020-11-21 07:51] MED LIST changes: +Fluorescein 5 ML Vial ONE; +Midazolam 1 MG/ML 2 ML SDV ONE; +Propofol 200 MG/20 ML SDV ONE; +Rocuronium Bromide 50 MG/5 ML Syringe ONE; +Sodium Chloride 0.9% 10 ML SDV IV PRN; +Sodium Chloride 0.9% 10 ML Syringe FLUSH PRN; +Sodium Chloride 0.9% 2.5 ML Syringe FLUSH PRN; +Succinylcholine/Sod PF 100 MG/5 ML SYRINGE IV ONE; +ceFAZolin 2 GM in Premix Bag 1 BAG IV ONE; +fentaNYL 100 MCG/2 ML SDV ONE
--- NOTE | 2020-11-21 08:35 | PCM.PREANE ---
Preanesthetic Assessment - Anesthesia/Transfusion/Family Hx Anesthesia History: Prior Anesthesia Without Reaction Family History of Anesthesia Reaction: No Transfusion History: No Prior Transfusion(s) Intubation History: Unknown - Review of Systems General: No Symptoms Pulmonary: No Symptoms Cardiovascular: No Symptoms Gastrointestinal: No Symptoms Neurological: No Symptoms Other: Reports: None - Physical Assessment Height: 5 ft 6 in Weight: 85.275 kg ASA Class: 2 Mental Status: Alert & Oriented x3 Airway Class: Mallampati = 2 Dentition: Reports: Normal Dentition, Partial (upper) Thyro-Mental Finger Breadths: 3 Mouth Opening Finger Breadths: 3 ROM/Head Extension: Full Lungs: Clear to Auscultation, Normal Respiratory Effort Cardiovascular: Regular Rate, Regular Rhythm - Lab Values: Laboratory Last Values WBC 5.91 K/uL (4.0-11.0) 11/18/20 12:11 RBC 4.28 M/uL (4.30-5.90) L 11/18/20 12:11 Hgb 13.2 g/dL (12.0-16.0) 11/18/20 12:11 Hct 40.8 % (36.0-46.0) 11/18/20 12:11 MCV 95.3 fL (80.0-98.0) 11/18/20 12:11 MCH 30.8 pg (27.0-32.0) 11/18/20 12:11 MCHC 32.4 g/dL (31.0-37.0) 11/18/20 12:11 RDW Std Deviation 48.7 fl (28.0-62.0) 11/18/20 12:11 RDW Coeff of Jennifer 14 % (11.0-15.0) 11/18/20 12:11 Plt Count 317 K/uL (150-400) 11/18/20 12:11 MPV 9.30 fL (7.40-12.00) 11/18/20 12:11 Nucleated RBC % 0.0 /100WBC 11/18/20 12:11 Nucleated RBCs # 0 K/uL 11/18/20 12:11 Sodium 141 mmol/L (136-145) 11/18/20 12:11 Potassium 4.2 mmol/L (3.5-5.1) 11/18/20 12:11 Chloride 105 mmol/L (98-107) 11/18/20 12:11 Carbon Dioxide 27.9 mmol/L (21.0-32.0) 11/18/20 12:11 BUN 6 mg/dL (7.0-18.0) L 11/18/20 12:11 Creatinine 0.7 mg/dL (0.6-1.0) 11/18/20 12:11 Est Cr Clr Drug Dosing 91.01 mL/min 11/18/20 12:11 Estimated GFR (MDRD) > 60.0 ml/min 11/18/20 12:11 Glucose 84 mg/dL (74-106) 11/18/20 12:11 Calcium 8.6 mg/dL (8.5-10.1) 11/18/20 12:11 HCG, Qual NEGATIVE (NEG) 11/18/20 12:11 Blood Type O POSITIVE 11/18/20 12:15 Antibody Screen NEGATIVE 11/18/20 12:15 - Allergies Allergies/Adverse Reactions: Allergies Allergy/AdvReac Type Severity Reaction Status Date / Time carbamazepine [From Tegretol] Allergy Nausea and Verified 11/21/20 08:28 Vomiting citalopram Allergy Nausea and Verified 11/21/20 08:28 Vomiting sulfamethoxazole Allergy Nausea and Verified 11/21/20 08:28 [From Bactrim] Vomiting trimethoprim [From Bactrim] Allergy Nausea and Verified 11/21/20 08:28 Vomiting champagne Allergy Hives Uncoded 11/21/20 08:28 chokecherries Allergy Rash Uncoded 11/21/20 08:28 - Blood Blood Available: No - Anesthesia Plan Pre-Op Medication Ordered: None - Acknowledgements Anesthesia Type Planned: General Anesthesia Pt an Appropriate Candidate for the Planned Anesthesia: Yes Alternatives and Risks of Anesthesia Discussed w Pt/Guardian: Yes Pt/Guardian Understands and Agrees with Anesthesia Plan: Yes PreAnesthesia Questionnaire HEENT History: Reports: Other (See Below) Other HEENT History: upper partial Cardiovascular History: Reports: Blood Clots/VTE/DVT Other Cardiovascular History: 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 stopped last month Respiratory History: Reports: None Gastrointestinal History: Reports: GERD Genitourinary History: Reports: UTI, Recurrent ANIMAL SITTER History: Reports: Dysfunctional Uterine Bleeding, Other OB/BYN History: 04/16/20 biopsy of cervix- normal Musculoskeletal History: Reports: Arthritis Neurological History: Reports: Seizure Other Neuro History: has not had a seizure in over a year Psychiatric History: Reports: Depression Endocrine/Metabolic History: Reports: Obesity/BMI 30+ (BMI 30.3) Hematologic History: Reports: None Immunologic History: Reports: None Oncologic (Cancer) History: Reports: None Dermatologic History: Reports: None - Infectious Disease History Infectious Disease History: Reports: Chicken Pox - Past Surgical History Head Surgeries/Procedures: Reports: None HEENT Surgical History: Reports: Tonsillectomy Cardiovascular Surgical History: Reports: None Respiratory Surgical History: Reports: None GI Surgical History: Reports: Cholecystectomy, Colonoscopy Female Surgical History: Reports: None Endocrine Surgical History: Reports: None Neurological Surgical History: Reports: None Musculoskeletal Surgical History: Reports: Other (See Below) Other Musculoskeletal Surgeries/Procedures:: Excision of bone spur right heel Oncologic Surgical History: Reports: None Dermatological Surgical History: Reports: None - SUBSTANCE USE Tobacco Use Status *Q: Current Every Day Tobacco User (1 ppd) Tobacco Use Within Last Twelve Months: Cigarettes - HOME MEDS Home Medications: Home Meds levETIRAcetam [Levetiracetam] 500 mg PO BID 09/07/16 [History] Phenytoin Sodium Extended [Dilantin] 300 cap PO BID 06/23/17 [History] levETIRAcetam [Levetiracetam] 750 tab PO BID 06/23/17 [History] buPROPion [buPROPion XL] 150 mg PO DAILY 10/29/20 [History] Famotidine [Acid Relocation Associate] 20 mg PO BID 11/15/20 [History] - CURRENT (IN HOUSE) MEDS Current Meds: Current Medications Lactated Ringer's (Ringers, Lactated) 1,000 mls @ 500 mls/hr IV BOLUS CYNTHIA Last Admin: 11/21/20 08:28 Dose: 500 mls/hr Documented by: Sodium Chloride (Saline Flush) 10 ml FLUSH ASDIRECTED PRN PRN Reason: Keep Vein Open Sodium Chloride (Saline Flush) 2.5 ml FLUSH ASDIRECTED PRN PRN Reason: Keep Vein Open Sodium Chloride (Normal Saline) 10 ml IV ASDIRECTED PRN PRN Reason: IV Use Discontinued Medications Fentanyl (Sublimaze) Confirm Administered Dose 100 mcg .ROUTE .STK-MED ONE Stop: 11/21/20 07:17 Fluorescein Sodium (Ak-Fluor) Confirm Administered Dose 5 ml .ROUTE .STK-MED ONE Stop: 11/21/20 07:52 Cefazolin Sodium/Dextrose 2 gm (/ Premix) 50 mls @ 100 mls/hr IV ONETIME ONE Stop: 11/18/20 10:50 Acetaminophen (Ofirmev) Confirm Administered Dose 100 mls @ as directed .ROUTE .STK-MED ONE Stop: 11/21/20 07:52 Lidocaine HCl (Xylocaine-Mpf 1%) Confirm Administered Dose 5 ml .ROUTE .STK-MED ONE Stop: 11/21/20 07:18 Midazolam HCl (Versed 1 Mg/Ml) Confirm Administered Dose 2 mg .ROUTE .STK-MED ONE Stop: 11/21/20 07:17 Propofol (Diprivan 20 Ml) Confirm Administered Dose 200 mg .ROUTE .STK-MED ONE Stop: 11/21/20 07:17 Rocuronium Mooers (Rocuronium Mooers) Confirm Administered Dose 50 mg .ROUTE .STK-MED ONE Stop: 11/21/20 07:18
[2020-11-21] MEDS ORDERED: HYDROmorphone 2 MG/ML Syringe ONE (09:34)
[2020-11-21] MEDS ORDERED: Propofol 200 MG/20 ML SDV ONE ×3 (09:34→10:06)
[2020-11-21] MEDS ORDERED: ceFAZolin/Dextrose,Iso-Osmotic 2 GM/50 ML Duplex Bag (Premix) IV ONE (09:37)
[2020-11-21] MEDS ORDERED: Glycopyrrolate 0.2 MG/ML SDV ONE (10:32)
[2020-11-21] MEDS ORDERED: Octyl 2-Cyanoacrylate 1 Tube ONE (10:41)
[2020-11-21] MEDS ORDERED: Morphine 4 MG/ML Syringe IVPUSH PRN (10:49)
[2020-11-21] MEDS ORDERED: Ketorolac 30 MG/ML SDV IVPUSH ONE (10:49)
[2020-11-21] MEDS ORDERED: Promethazine 25 MG/ML SDV IM PRN (10:49)
[2020-11-21] MEDS ORDERED: Ondansetron 4 MG/2 ML SDV IVPUSH PRN (10:49)
[2020-11-21] MEDS ORDERED: Acetaminophen/oxyCODONE 325-5 MG Tab PO PRN ×2 (10:49)
--- NOTE | 2020-11-21 10:53 | PCM.OPNOTE ---
- General Post-Op/Procedure Note Date of Surgery/Procedure: 11/21/20 Operative Procedure(s): TLH,BSO and Cysto Post-Op Diagnosis: Same Anesthesia Technique: General ET Tube Primary Surgeon: Esteban Khan EBL in mLs: 100 Complications: None Condition: Good
--- NOTE | 2020-11-21 11:43 | PCM.POSTAN ---
POST ANESTHESIA ASSESSMENT - MENTAL STATUS Mental Status: Alert, Oriented - VITAL SIGNS Vital Signs: Last Vital Signs Temp 36.7 C 11/21/20 10:53 Pulse 61 11/21/20 11:38 Resp 12 11/21/20 11:38 BP 106/50 L 11/21/20 11:38 Pulse Ox 95 11/21/20 11:38 - RESPIRATORY Respiratory Status: Respiratory Rate WNL, Airway Patent, O2 Saturation Stable - CARDIOVASCULAR CV Status: Pulse Rate WNL, Blood Pressure Stable - GASTROINTESTINAL GI Status: No Symptoms - PAIN Pain Score: 3 - POST OP HYDRATION Hydration Status: Adequate & Stable - OBSERVATIONS Free Text/Narrative:: No anesthesia problems
--- NOTE | 2020-11-21 14:41 | OR ---
SURGEON: Esteban Khan MD DATE OF PROCEDURE: 11/21/2020 PREOPERATIVE DIAGNOSIS: Menometrorrhagia. POSTOPERATIVE DIAGNOSIS: Menometrorrhagia. OPERATIONS PERFORMED: Total laparoscopic hysterectomy, laparoscopic bilateral salpingo-oophorectomy, and cystoscopy. PRIMARY SURGEON: Esteban Khan MD EDGE BANDER OPERATOR: OR tech. ANESTHESIA: General endotracheal intubation. ESTIMATED BLOOD LOSS: Less than 100 mL. COMPLICATIONS: None. FINDINGS: Uterus is about 12-week size with a small fibroid. Both tubes and ovary are normal. PROCEDURE IN DETAIL: The patient was brought to the OR, properly identified, and after adequate level of general anesthesia, the patient placed in lithotomy position with an access to the abdomen and the vagina. The patient was prepped and draped in sterile fashion as usual. The colpotomizer and manipulator were placed in the uterus for manipulation and Salas catheter was placed in the bladder for drainage. The operation shifted abdominally. Stab wound done beneath the umbilicus. The Veress needle was placed in the peritoneal cavity and that cavity insufflated with 3.5 L of carbon dioxide, and then utilizing the Visiport technique, 5 mm trocar placed infraumbilically and then the laparoscope through it. Inspection of the pelvic organ revealed the above-mentioned dictated findings. Then, the patient placed in steep Trendelenburg. 10/12 trocar placed in the left iliac fossa and 5 mm in the right iliac fossa. The operation started by identifying the landmark of the anatomy, and then using the Yo Harmonic scalpel, the superior pedicle coagulated and transected on both sides, taking the ovary and the tube with the specimen, and the round ligament done in the same way. Then, the anterior leaf of the broad ligament was dissected downward medially pushing the bladder completely away from the operative field. The uterine vessel was identified, and at the level of the manipulator, this uterine vessel was coagulated and transected with the Yo Harmonic scalpel on both sides and then the anterior vaginal wall was entered anteriorly at the edge of the manipulator with the Yo Harmonic scalpel and in a circular manner it was carried away around the vagina at the edge of the manipulator. The cervix was detached from the vagina and then cervix and uterus and both tubes and ovaries removed vaginally. Pneumoperitoneum re-established by placing vaginal pack in the vagina and then thorough irrigation of the operative field showed no oozing, no bleeding. We proceeded to close the vaginal cuff laparoscopically with 2-0 PDS interrupted sutures. While we were doing that, we asked the Anesthesia personnel to give the patient fluorescein and after that the abdomen was deflated. Cystoscopy was performed, the bladder was intact. Both ureteric orifices seen with the dye coming from both of them. Thus, the patency of both ureters verified. Satisfied with these finding, the procedure ended after closing the laparoscopic incision in layer. Instrument and sponge count was correct. The patient tolerated the procedure well, went to recovery room in stable general condition. BARTOLO / SANGEETA /[id number]
[2020-11-21] MEDS ORDERED: Ketorolac 30 MG/ML SDV IVPUSH PRN (17:00)
[2020-11-21 17:28] VITALS: BP 103/51; PULSE 68
--- NOTE | 2020-11-22 10:01 | PCM48HPAN ---
Post Anesthesia Note - EVALUATION WITHIN 48HRS OF ANESTHETIC Vital Signs in Normal Range: Yes Patient Participated in Evaluation: Yes Respiratory Function Stable: Yes Airway Patent: Yes Cardiovascular Function Stable: Yes Hydration Status Stable: Yes Pain Control Satisfactory: Yes Nausea and Vomiting Control Satisfactory: Yes Mental Status Recovered: Yes Vital Signs: Last Vital Signs Temp 36.4 C 11/21/20 16:00 Pulse 68 11/21/20 16:00 Resp 16 11/21/20 16:00 BP 103/51 L 11/21/20 16:00 Pulse Ox 95 11/21/20 16:00
== END 2020-11-21 17:45 | disposition home or self-care (01) ==
LOC: MW.SDS 07:51 → MW.MS 12:23 → MW.SDS 17:45
PROVIDERS: ATTEND Obstetrics & Gynecology
DX: D25.1 Intramural leiomyoma of uterus (principal); D25.2 Subserosal leiomyoma of uterus; N84.0 Polyp of corpus uteri; N83.01 Follicular cyst of right ovary; N83.202 Unspecified ovarian cyst, left side; D06.9 Carcinoma in situ of cervix, unspecified; F17.210 Nicotine dependence, cigarettes, uncomplicated; E66.9 Obesity, unspecified; Z79.899 Other long term (current) drug therapy; Z88.8 Allergy status to other drugs, medicaments and biological substances; Z98.890 Other specified postprocedural states; Z68.30 Body mass index [BMI] 30.0-30.9, adult; Z90.89 Acquired absence of other organs
CPT/HCPCS: 36415; 58571; 80048; 84703; 85027; 86850; 86900; 86901; 88309; A9270; J0131; J0690; J1170; J2001; J2250; J2704; J3010; J3490; J7120; 00840; J0330

== ENCOUNTER 2025-03-01 16:53 | Emergency (ER) | payer BC | END 2025-03-01 17:10 | disposition left against medical advice (07) | LOC: MW.ED 16:53 | DX: Z53.21 Procedure and treatment not carried out due to patient leaving prior to being seen by health care provider (principal) ==

== ENCOUNTER 2025-10-05 | Emergency (ER) | payer BC ==
[2025-10-05 00:39] LABS: BASOPHILS ABSOLUTE AUTO 0.06 K/uL (0.00-0.20); BASOPHILS PERCENT AUTO 0.4 % (0.0-1.0); EOSINOPHILS ABSOLUTE AUTO 0.03 K/uL (0.00-0.45); EOSINOPHILS PERCENT AUTO 0.2 % (0.0-6.0); IMMATURE GRAN ABSOLUTE AUTO 0.08 K/uL (0.00-0.05); IMMATURE GRAN PERCENT AUTO 0.5 % (0.0-0.4); LYMPHOCYTES ABSOLUTE AUTO 2.77 K/uL (1.00-4.80); LYMPHOCYTES PERCENT AUTO 16.3 % (24.0-44.0); MEAN PLATELET VOLUME 9.1 fL (9.4-12.3); MONOCYTES ABSOLUTE AUTO 1.34 K/uL (0.00-0.80); MONOCYTES PERCENT AUTO 7.9 % (0.0-8.0); NEUTROPHILS ABSOLUTE AUTO 12.76 K/uL (1.80-7.70); NEUTROPHILS PERCENT AUTO 74.7 % (41.0-71.0); NRBC ABSOLUTE 0.00 K/uL (0.00-0.02); NRBC PERCENT 0.0 /100WBC (0.0-0.2); PLATELET COUNT,PLT 223 K/uL (150-400); RED BLOOD CELL COUNT 4.04 M/uL (4.10-5.30); WHITE BLOOD CELL COUNT,WBC 17.04 K/uL (3.9-11.3)
[2025-10-05 00:41] LABS: GLUCOSE,URINE NEGATIVE (NEGATIVE); OCCULT BLOOD,URINE LARGE (NEGATIVE)
[2025-10-05 00:50] LABS: APPEARANCE,URINE HAZY; EPITHELIAL CELLS,URINE MODERATE (NONE-FEW); YEAST,URINE FEW
[2025-10-05 01:19] LABS: A/G RATIO 0.7 (0.9-1.6); ALANINE AMINOTRANSFERASE,ALT 16 IU/L (14-63); ASPARTATE AMNIOTRANSFERASE,AST 19 IU/L (15-37); BILIRUBIN TOTAL 0.4 mg/dL (0.2-1.0); BLOOD UREA NITROGEN,BUN 12 mg/dL (7.0-18.0); CARBON DIOXIDE,CO2 32.2 mmol/L (21.0-32.0); CHLORIDE,CL 101 mmol/L (98-107); CREATININE 0.8 mg/dL (0.6-1.0); ESTIMATED GFR 88 mL/min (>60); GLUCOSE RANDOM 98 mg/dL (74-106); POTASSIUM,K 4.1 mmol/L (3.5-5.1); PROTEIN TOTAL,TP 7.1 g/dL (6.4-8.2); SODIUM,NA 137 mmol/L (136-145)
[2025-10-05 01:47] VITALS: BP 116/60; PULSE 84
[2025-10-05] MEDS: Amoxicillin/Clavulanate K 875-125 MG Tab PO ONE (01:49)
== END 2025-10-05 02:19 | disposition home or self-care (01) ==
LOC: MW.ED
DX: J18.9 Pneumonia, unspecified organism (principal); E66.9 Obesity, unspecified; Z90.89 Acquired absence of other organs; Z90.49 Acquired absence of other specified parts of digestive tract; Z79.01 Long term (current) use of anticoagulants; Z79.899 Other long term (current) drug therapy; Z88.8 Allergy status to other drugs, medicaments and biological substances; Z88.2 Allergy status to sulfonamides; Z88.1 Allergy status to other antibiotic agents; Z91.018 Allergy to other foods
CPT/HCPCS: 36415; 71046; 80053; 81001; 85025; 87428; 87651; 99283; A9270; Q0144

== ENCOUNTER 2025-10-13 09:53 | Emergency (ER) | payer BC ==
[2025-10-13] MEDS ORDERED: Sodium Chloride 0.9% 10 ML Syringe FLUSH PRN (10:46)
[2025-10-13] MEDS ORDERED: Sodium Chloride 0.9% 2.5 ML Syringe FLUSH PRN (10:46)
[2025-10-13] MEDS ORDERED: Naloxone 0.4 MG/ML SDV IVPUSH PRN (10:47)
[2025-10-13] MEDS: Ondansetron 4 MG/2 ML SDV IVPUSH ONE (10:58)
[2025-10-13] MEDS: levETIRAcetam 500 MG/5 ML SDV IVPUSH ONE (10:58)
[2025-10-13 11:04] LABS: BASOPHILS ABSOLUTE AUTO 0.02 K/uL (0.00-0.20); BASOPHILS PERCENT AUTO 0.2 % (0.0-1.0); EOSINOPHILS ABSOLUTE AUTO 0.01 K/uL (0.00-0.45); EOSINOPHILS PERCENT AUTO 0.1 % (0.0-6.0); IMMATURE GRAN ABSOLUTE AUTO 0.04 K/uL (0.00-0.05); IMMATURE GRAN PERCENT AUTO 0.4 % (0.0-0.4); LYMPHOCYTES ABSOLUTE AUTO 1.23 K/uL (1.00-4.80); LYMPHOCYTES PERCENT AUTO 12.3 % (24.0-44.0); MEAN PLATELET VOLUME 9.6 fL (9.4-12.3); MONOCYTES ABSOLUTE AUTO 0.50 K/uL (0.00-0.80); MONOCYTES PERCENT AUTO 5.0 % (0.0-8.0); NEUTROPHILS ABSOLUTE AUTO 8.17 K/uL (1.80-7.70); NEUTROPHILS PERCENT AUTO 82.0 % (41.0-71.0); NRBC ABSOLUTE 0.00 K/uL (0.00-0.02); NRBC PERCENT 0.0 /100WBC (0.0-0.2); PLATELET COUNT,PLT 302 K/uL (150-400); RED BLOOD CELL COUNT 4.06 M/uL (4.10-5.30); WHITE BLOOD CELL COUNT,WBC 9.97 K/uL (3.9-11.3)
[2025-10-13 11:22] LABS: INR 0.97 (0.86-1.11); PTT,PARTIAL THROMBOPLSTIN TIME 24.5 SEC (23.9-30.7)
[2025-10-13 11:45] LABS: A/G RATIO 0.8 (0.9-1.6); ALANINE AMINOTRANSFERASE,ALT 24.0 IU/L (14-63); ASPARTATE AMNIOTRANSFERASE,AST 23.0 IU/L (15-37); BILIRUBIN TOTAL 0.2 mg/dL (0.2-1.0); BLOOD UREA NITROGEN,BUN 10.0 mg/dL (7.0-18.0); CARBON DIOXIDE,CO2 30.5 mmol/L (21.0-32.0); CHLORIDE,CL 106.0 mmol/L (98-107); CREATININE 0.7 mg/dL (0.6-1.0); EST CRCL DRUG DOSING (CG) 86.01 mL/min; GLUCOSE RANDOM 109.0 mg/dL (74-106); POTASSIUM,K 4.4 mmol/L (3.5-5.1); PROTEIN TOTAL,TP 6.6 g/dL (6.4-8.2); SODIUM,NA 141.0 mmol/L (136-145)
[2025-10-13 11:46] LABS: ESTIMATED GFR 103.0 mL/min (>60)
[2025-10-13 13:28] VITALS: BP 106/52; PULSE 72
== END 2025-10-13 13:28 | disposition home or self-care (01) ==
LOC: MW.ED 09:53
DX: S22.41XA Multiple fractures of ribs, right side, initial encounter for closed fracture (principal); K21.9 Gastro-esophageal reflux disease without esophagitis; E66.9 Obesity, unspecified; F17.200 Nicotine dependence, unspecified, uncomplicated; Z79.899 Other long term (current) drug therapy; Z79.01 Long term (current) use of anticoagulants; Z88.2 Allergy status to sulfonamides; Z68.34 Body mass index [BMI] 34.0-34.9, adult; Z86.69 Personal history of other diseases of the nervous system and sense organs; Z88.8 Allergy status to other drugs, medicaments and biological substances; W01.0XXA Fall on same level from slipping, tripping and stumbling without subsequent striking against object, initial encounter
CPT/HCPCS: 36415; 70450; 71250; 72125; 72128; 80053; 83605; 84145; 85025; 85610; 85730; 96374; 96375; 99284; J1953; J2270; J2405

== ENCOUNTER 2025-10-16 19:40 | Emergency (ER) | payer BC ==
[2025-10-16] MEDS: Ondansetron 4 MG/2 ML SDV IVPUSH ONE (20:56)
[2025-10-16 20:58] LABS: BASOPHILS ABSOLUTE AUTO 0.04 K/uL (0.00-0.20); BASOPHILS PERCENT AUTO 0.4 % (0.0-1.0); EOSINOPHILS ABSOLUTE AUTO 0.03 K/uL (0.00-0.45); EOSINOPHILS PERCENT AUTO 0.3 % (0.0-6.0); IMMATURE GRAN ABSOLUTE AUTO 0.04 K/uL (0.00-0.05); IMMATURE GRAN PERCENT AUTO 0.4 % (0.0-0.4); LYMPHOCYTES ABSOLUTE AUTO 2.22 K/uL (1.00-4.80); LYMPHOCYTES PERCENT AUTO 21.4 % (24.0-44.0); MEAN PLATELET VOLUME 8.7 fL (9.4-12.3); MONOCYTES ABSOLUTE AUTO 0.74 K/uL (0.00-0.80); MONOCYTES PERCENT AUTO 7.1 % (0.0-8.0); NEUTROPHILS ABSOLUTE AUTO 7.30 K/uL (1.80-7.70); NEUTROPHILS PERCENT AUTO 70.4 % (41.0-71.0); NRBC ABSOLUTE 0.00 K/uL (0.00-0.02); NRBC PERCENT 0.0 /100WBC (0.0-0.2); PLATELET COUNT,PLT 254 K/uL (150-400); RED BLOOD CELL COUNT 4.30 M/uL (4.10-5.30); WHITE BLOOD CELL COUNT,WBC 10.37 K/uL (3.9-11.3)
[2025-10-16 21:41] LABS: A/G RATIO 1.0 (0.9-1.6); ALANINE AMINOTRANSFERASE,ALT 20 IU/L (14-63); ASPARTATE AMNIOTRANSFERASE,AST 21 IU/L (15-37); BILIRUBIN TOTAL 0.2 mg/dL (0.2-1.0); BLOOD UREA NITROGEN,BUN 13 mg/dL (7.0-18.0); CARBON DIOXIDE,CO2 30.6 mmol/L (21.0-32.0); CHLORIDE,CL 105 mmol/L (98-107); CREATININE 0.8 mg/dL (0.6-1.0); GLUCOSE RANDOM 99 mg/dL (74-106); POTASSIUM,K 4.1 mmol/L (3.5-5.1); PROTEIN TOTAL,TP 6.7 g/dL (6.4-8.2); SODIUM,NA 143 mmol/L (136-145)
[2025-10-16 21:43] LABS: ESTIMATED GFR 88 mL/min (>60)
[2025-10-16] MEDS: Iopamidol 755 MG/ML 500 ML Multipack Bottle IVPUSH STA (22:34)
[2025-10-16 23:36] VITALS: BP 107/68; PULSE 78
== END 2025-10-16 23:28 | disposition home or self-care (01) ==
LOC: MW.ED 19:40
DX: S22.41XA Multiple fractures of ribs, right side, initial encounter for closed fracture (principal); R10.84 Generalized abdominal pain; Z88.8 Allergy status to other drugs, medicaments and biological substances; Z79.899 Other long term (current) drug therapy; F17.200 Nicotine dependence, unspecified, uncomplicated; W18.39XA Other fall on same level, initial encounter; Y93.89 Activity, other specified
CPT/HCPCS: 36415; 71046; 74177; 80053; 84484; 85025; 93005; 96374; 96375; 99284; A9270; J2270; J2405; Q9967; 93010